=== PATIENT | male | born 1965 | race Caucasian/White ===

== ENCOUNTER → 2016-07-25 | Outpatient (CLI) | payer BC ==
--- NOTE | 2016-07-25 07:54 | MR ---
EXAMINATION TYPE: MR brain wo/w con DATE OF EXAM: 07/25/2016 6:54 AM COMPARISON: NONE HISTORY: Transient global amnesia CONTRAST: Patient received 20 mL intravenous MultiHance gadolinium contrast. Multiplanar and multispin-echo imaging of the brain was performed . Pre and post contrast enhanced i mages are obtained. The ventricles, basal cisterns and sulci overlying the cerebral convexities are minimally enlarged. There is evidence of mild periventricular white matter ischemic demyelination. Remote deep white matter insults are also noted. No acute edema is seen on diffusion weighted imaging. There is no evidence for midline shift or mass effect. Acute intracranial hemorrhage or extra-axial collection is not evident. No enhancing lesions are seen. Incidental small venous angioma left cerebellar lobe. Mild chronic ethmoidal sinusitis. Mastoid air cells are well-aerated. IMPRESSION: Age-related atrophic and chronic small vessel ischemic change. No acute intracranial process at this time. No enhancing lesions are seen.
== END | disposition home or self-care (01) ==
LOC: RADMRIMAIN 06:09
PROVIDERS: ATTEND Nurse Practitioner Family
DX: G45.4 Transient global amnesia (principal); Z87.820 Personal history of traumatic brain injury
CPT/HCPCS: 70553; A9577

== ENCOUNTER 2017-07-04 08:22 | Day surgery (SDC) | payer BC ==
[2017-07-02 11:27] VITALS: BMI 25.0
[~2017-07-04 08:22] MED LIST: LACTATED RINGERS 1,000 ML IV SCH; LIDOCAINE 1% 20 ML VIAL (10MG/ML) FOR IV START INTRADERMA PRN
[2017-07-04 08:37] VITALS: TEMP 98.5
[2017-07-04] MEDS ORDERED: PROPOFOL 10 MG/ML 20 ML VIAL IV ONE (09:47)
[2017-07-04] MEDS ORDERED: LIDOCAINE 1% INJ 10MG/ML (20 ML MDV) ONE (09:47)
[2017-07-04] MEDS ORDERED: IV FLUID CONTINUATION 1,000 ML IV ONE (10:24)
--- NOTE | 2017-07-04 10:30 | P.PCN ---
Date of Procedure: 07/04/17 Procedure(s) Performed: Procedure: Colonoscopy and polypectomy. Preoperative diagnosis: Screening for neoplasia. Postoperative diagnosis: 1. Multiple polyps snared but no large polyps or cancer. 2. Sigmoid diverticulosis with no evidence of acute diverticulitis or strictures. 3. Low-grade internal hemorrhoids not bleeding at the time of this exam. Preparation: HalfLytely prep. Sedation: Was provided by anesthesia. Brief clinical history: The patient is a 52-year-old male who is scheduled for this evaluation for screening for neoplasia age being his risk factor. He apparently has been having intermittent rectal bleeding. I have seen him in the past and evaluated him for esophagitis and Jiménez's esophagus. Procedure: With the patient on his left lateral decubitus position and after informed consent and adequate sedation, the perianal area was inspected and it did not show any fissures or fistulas. There were no masses felt on digital rectal examination. The Olympus CFQ 160L video colonoscope was then inserted in the rectum in the usual fashion and advanced to the cecum. There were several diverticular orifices seen scattered in the distal sigmoid but there was no evidence of acute diverticulitis or strictures. At 30 cm from the anal verge there was a 1.5 cm polyp with a long pedicle which was snared and retrieved by capturing it with the snare and withdrawing the endoscope. There were 2 small polyps around the splenic flexure that were snared and retrieved by suction but there were no large polyps or cancer. The mucosa appeared healthy. I retroflexed the endoscope in the rectum before the endoscope was withdrawn. Low-grade internal hemorrhoids were noted with no evidence of bleeding at the time of this exam. The patient tolerated the procedure well. Plan: The patient was reassured. Discussed dietary measures and local care for hemorrhoids. Will await pathology results. He will follow up with you as planned. I anticipate repeating this exam in around 3 years.
[2017-07-04 10:52] VITALS: BP 123/75; PULSE 55; RESP 18
== END 2017-07-04 11:21 | disposition home or self-care (01) ==
LOC: ORWHC2ENDO 08:22
DX: D12.3 Benign neoplasm of transverse colon (principal); D12.5 Benign neoplasm of sigmoid colon; K57.30 Diverticulosis of large intestine without perforation or abscess without bleeding; K64.8 Other hemorrhoids; K21.9 Gastro-esophageal reflux disease without esophagitis; F17.200 Nicotine dependence, unspecified, uncomplicated; F41.9 Anxiety disorder, unspecified; F32.9 Major depressive disorder, single episode, unspecified
CPT/HCPCS: 45385; 88305

== ENCOUNTER → 2017-11-23 | Outpatient (CLI) | payer BC ==
--- NOTE | 2017-11-24 22:04 | MR ---
EXAMINATION TYPE: MR brain and iac wo/w con DATE OF EXAM: 11/23/2017 COMPARISON: Prior MRI brain July 25, 2016. HISTORY: Tinnitus and asymmetric left-sided sensorineural hearing loss per order. TECHNIQUE: Multiplanar, multisequence images of the brain and brainstem including internal auditory canals are a ll performed without and with IV contrast, utilizing 8.0 mL intravenous Gadavist . FINDINGS: Diffusion weighted images demonstrate no evidence of a recent infarct or other diffusion ab normality. There is no worrisome extra-axial fluid collection. There is stable mild ventricular and sulcal prominence consistent with mild age-related cerebral atrophy. There are scattered foci T2 hype rintensity seen throughout the superficial, deep, and periventricular white matter. Approximately 20- 30 scattered small lesions are redemonstrated. Lesions are nonspecific in appearance and distribution but are most likely on the basis of product of chronic small vessel ischemic change. Midline structures demonstrate normal morphology. The craniocervical junction appears within normal limits. Post contrast images demonstrate no abnormal enhancement. Dominant tortuous right vertebral artery is redemonstrated. The dural venous sinuses appear patent. There is persistent mild mucosal th ickening right maxillary sinus. There is now more moderate mucosal thickening left maxillary sinus wi th air-fluid level. There is mild to moderate mucosal thickening anterior ethmoid sinuses bilaterally more prominent than prior. The globes are intact bilaterally. Mastoid air cells show no suspicious opacification bilaterally. The vestibulocochlear complexes are s ymmetric and felt within normal limits. No suspicious enhancing cerebellopontine angle mass is identi fied bilaterally. IMPRESSION: 1. No suspicious mass or enhancement to account for patient's symptoms. 2. Stable mild age-related atrophy and mild to moderate chronic small vessel ischemic change. 3. Acute on chronic paranasal sinus disease as detailed above more prominent versus prior.
== END ==
LOC: RADMRIMAIN 09:24
PROVIDERS: ATTEND Otolaryngology
DX: G31.1 Senile degeneration of brain, not elsewhere classified (principal); I67.82 Cerebral ischemia
CPT/HCPCS: 70553; A9581

== ENCOUNTER 2018-11-06 09:22 | Day surgery (SDC) | payer BC ==
[2018-11-04 11:52] VITALS: BMI 23.4
[2018-11-06 09:45] VITALS: RESP 16; TEMP 98
[2018-11-06] MEDS ORDERED: PROPOFOL 10 MG/ML 20 ML VIAL IV ONE (11:19)
--- NOTE | 2018-11-06 11:23 | P.GSHP ---
History of Present Illness H&P Date: 11/06/18 Chief Complaint: Internal and external hemorrhoids This a 53-year-old male has complaints of abdominal discomfort, rectal bleeding and itching and pain from internal and external hemorrhoids. Patient rents today for colonoscopy. Past Medical History Past Medical History: GERD/Reflux Additional Past Medical History / Comment(s): anemia, "chronic kidney disease when taking certain medications" History of Any Multi-Drug Resistant Organisms: None Reported Past Surgical History: Hernia Repair, Orthopedic Surgery Additional Past Surgical History / Comment(s): ACL rt knee, rt foot surgery from injury, umbilical hernia, Past Anesthesia/Blood Transfusion Reactions: No Reported Reaction Smoking Status: Current some day smoker - Past Family History Mother Family Medical History: No Reported History Father Family Medical History: Cancer Sister(s) Family Medical History: Cancer Brother(s) Family Medical History: Cancer Medications and Allergies Home Medications Medication Instructions Recorded Confirmed Type Omeprazole 20 mg PO 1700 07/02/17 11/06/18 History ALPRAZolam [Xanax] 0.5 mg PO DAILY PRN 11/04/18 11/06/18 History Allergies Allergy/AdvReac Type Severity Reaction Status Date / Time No Known Allergies Allergy Verified 11/06/18 09:38 Surgical - Exam Vital Signs Temp Pulse Resp BP Pulse Ox 98.0 F 72 16 127/86 97 11/06/18 09:41 11/06/18 09:41 11/06/18 09:41 11/06/18 09:41 11/06/18 09:41 - General well developed, well nourished, no distress - Eyes PERRL - ENT normal pinna - Neck no masses - Respiratory normal expansion - Cardiovascular Rhythm: regular - Abdomen Abdomen: soft, non tender Assessment and Plan Assessment: History of internal/external hemorrhoids Abdominal discomfort Anal pain and bleeding and itching. We'll perform colonoscopy..
--- NOTE | 2018-11-06 11:34 | P.OP ---
Date of Procedure: 11/06/18 Preoperative Diagnosis: Internal and external hemorrhoids Postoperative Diagnosis: Diverticulosis Internal and external hemorrhoids. Transverse colon polyp Procedure(s) Performed: Colonoscopy Anesthesia: MAC Surgeon: Zeyad Perez Pathology: other (Transverse colon polyp) Condition: stable Disposition: PACU Description of Procedure: The patient's placed on the endoscopy table in the lateral position. He received IV sedation. Digital rectal exam was performed which revealed internal and external hemorrhoids. The flexible colonoscope was then placed patient anus and passed throughout the entire colon. The ileocecal valve was visualized. Cecum, ascending colon appeared normal. In the transverse colon there was a small sessile polyp this removed with the cold forcep. Scope was then withdrawn and there was diverticular changes in the descending and sigmoid colon. Scope was then brought back the rectum and internal and external hemorrhoids were noted at the anus. The rectum was normal. Scope was withdrawn for patient.
[2018-11-06 11:53] VITALS: BP 109/76; PULSE 60
== END 2018-11-06 12:37 | disposition home or self-care (01) ==
LOC: ORWHC2ENDO 09:22
PROVIDERS: ATTEND Surgery
DX: K64.8 Other hemorrhoids (principal); K64.4 Residual hemorrhoidal skin tags; K63.5 Polyp of colon; K57.30 Diverticulosis of large intestine without perforation or abscess without bleeding; K21.9 Gastro-esophageal reflux disease without esophagitis; F17.200 Nicotine dependence, unspecified, uncomplicated; Z79.899 Other long term (current) drug therapy; Z80.9 Family history of malignant neoplasm, unspecified
CPT/HCPCS: 88305; 45380; J2704

== ENCOUNTER 2018-11-28 06:16 | Day surgery (SDC) | payer BC ==
[2018-11-26 10:49] VITALS: BMI 23.1
[~2018-11-28 06:16] MED LIST changes: +DEXAMETHASONE SOD PHOSPHATE 10 MG/ML 1 ML VIAL IV ONE; +HEPARIN SODIUM,PORCINE 5,000 UNIT/ML 1 ML VIAL SQ ONE; +HYDROmorphone 0.5 MG/0.5 ML SYRINGE IVP PRN; -LIDOCAINE 1% 20 ML VIAL (10MG/ML) FOR IV START INTRADERMA PRN; +MIDAZOLAM 2 MG/2 ML VIAL IV PRN; +ONDANSETRON 4 MG/2 ML VIAL IVP ONE; +Pre Op ABX Message 1 EACH MISC MISCELLANE ONE; +SCOPOLAMINE 1.5MG/72HR PATCH TRANSDERM ONE
[2018-11-28 06:43] VITALS: RESP 16
[2018-11-28] MEDS ORDERED: NA PHOS,M-B/NA PHOS,DI-BA 133 ML ENEMA RECTAL ONE (06:50)
[2018-11-28] MEDS ORDERED: LIDOCAINE 1% 20 ML VIAL (10MG/ML) FOR IV START INTRADERMA ONE (06:50)
[2018-11-28] MEDS ORDERED: BUPIVACAINE (PF) 0.5% 30 ML VIAL SQ ONE (07:22)
[2018-11-28] MEDS ORDERED: LIDOCAINE 1% INJ 10MG/ML (20 ML MDV) ONE (07:52)
[2018-11-28] MEDS ORDERED: SUCCINYLCHOLINE CHLORIDE 100 MG/5 ML SYR IV ONE (07:52)
[2018-11-28] MEDS ORDERED: PROPOFOL 10 MG/ML 20 ML VIAL IV ONE (07:52)
[2018-11-28] MEDS ORDERED: fentaNYL (PF) 50 MCG/ML 2 ML AMP ONE (07:52)
[2018-11-28] MEDS ORDERED: MIDAZOLAM 2 MG/2 ML VIAL ONE (07:52)
[2018-11-28] MEDS ORDERED: GLYCOPYRROLATE 0.2 MG/ML 2 ML VIAL ONE (07:52)
[2018-11-28] MEDS ORDERED: LACTATED RINGERS 1,000 ML IV ONE (08:37)
--- NOTE | 2018-11-28 08:44 | P.GSHP ---
History of Present Illness H&P Date: 11/28/18 Chief Complaint: Internal and external hemorrhoids This is a 53-year-old male who's had trouble with internal and external hemorrhoids. Patient points of rectal bleeding pain and itching. He presents today for hemorrhoidectomy. Past Medical History Past Medical History: GERD/Reflux Additional Past Medical History / Comment(s): hemorrhoids,anemia, "chronic kidney disease when taking certain medications" History of Any Multi-Drug Resistant Organisms: None Reported Past Surgical History: Hernia Repair, Orthopedic Surgery Additional Past Surgical History / Comment(s): ACL rt knee, rt foot surgery from injury, umbilical hernia, early on set alzheimers Past Anesthesia/Blood Transfusion Reactions: No Reported Reaction Smoking Status: Current some day smoker - Past Family History Mother Family Medical History: No Reported History Father Family Medical History: Cancer Sister(s) Family Medical History: Cancer Brother(s) Family Medical History: Cancer Medications and Allergies Home Medications Medication Instructions Recorded Confirmed Type Omeprazole 20 mg PO 1700 07/02/17 11/28/18 History ALPRAZolam [Xanax] 0.5 mg PO DAILY PRN 11/04/18 11/28/18 History Allergies Allergy/AdvReac Type Severity Reaction Status Date / Time No Known Allergies Allergy Verified 11/28/18 06:30 Surgical - Exam Vital Signs Temp Pulse Resp BP Pulse Ox 97.6 F 58 L 16 125/83 97 11/28/18 06:41 11/28/18 06:41 11/28/18 06:41 11/28/18 06:41 11/28/18 06:41 - General well developed, well nourished, no distress - Eyes PERRL - ENT normal pinna - Neck no masses - Respiratory normal expansion - Cardiovascular Rhythm: regular - Abdomen Abdomen: soft, non tender - Rectum Internal/external hemorrhoids Assessment and Plan Assessment: Internal and external hemorrhoids. We'll perform hemorrhoidectomy.
[2018-11-28 08:46] VITALS: TEMP 97.5
--- NOTE | 2018-11-28 08:46 | P.OP ---
Date of Procedure: 11/28/18 Preoperative Diagnosis: Internal and external hemorrhoids Postoperative Diagnosis: Internal and external hemorrhoids Procedure(s) Performed: Internal and external hemorrhoidectomy Anesthesia: RAJAN Surgeon: Zeyad Perez Estimated Blood Loss (ml): 5 Pathology: other (Internal and external hemorrhoids) Condition: stable Disposition: PACU Description of Procedure: The patient's placed on the endoscopy table on the operating table in the prone position after receiving general anesthesia. His anus was prepped and draped usual fashion. The patient had significant internal and external hemorrhoids. The anal retractors placed and anus. The left lateral column was grasped with a Allis clamp and then using the Harmonic scissors the rectus performed. Next the right anterior and right posterior column were removed in identical fashion. There is no bleeding seen. The anus was packed with a piece of Gelfoam. The anus was anesthetized 1% local Xylocaine. Patient top she will was sent to recovery room stable condition.
[2018-11-28 10:21] VITALS: BP 123/76; PULSE 75
== END 2018-11-28 10:33 | disposition home or self-care (01) ==
LOC: OR 06:16
PROVIDERS: ATTEND Surgery
DX: K64.8 Other hemorrhoids (principal); K64.4 Residual hemorrhoidal skin tags; K21.9 Gastro-esophageal reflux disease without esophagitis; D64.9 Anemia, unspecified; F41.9 Anxiety disorder, unspecified; G30.0 Alzheimer's disease with early onset; F02.80 Dementia in other diseases classified elsewhere, unspecified severity, without behavioral disturbance, psychotic disturbance, mood disturbance, and anxiety; F17.200 Nicotine dependence, unspecified, uncomplicated; Z79.899 Other long term (current) drug therapy; Z80.9 Family history of malignant neoplasm, unspecified
CPT/HCPCS: 46260; 88304; J2250; J1644; J1100; J2405; J2001; J3010; J0330; J2704

== ENCOUNTER 2018-12-03 13:39 | Emergency (ER) | payer BC ==
[2018-12-03 13:54] VITALS: RESP 16; TEMP 98.4
[2018-12-03] MEDS ORDERED: KETOROLAC 60 MG/2 ML VIAL IVP STA (14:09)
[2018-12-03] MEDS ORDERED: DIAZEPAM 5 MG/ML 2 ML INJ IVP STA (14:09)
--- NOTE | 2018-12-03 14:14 | ED ---
General Adult HPI - General Chief complaint: Abdominal Pain Stated complaint: Constipation Time Seen by Provider: 12/03/18 13:50 Source: patient, RN notes reviewed Mode of arrival: ambulatory Limitations: no limitations - History of Present Illness Initial comments: This is a 53-year-old male who presents to the emergency department complaining of stating he just had hemorrhoid surgery 5 days ago. Patient states going to the bathroom and trying to have a bowel movement makes him literally cry. Patient states he has been constipated because it hurt so bad to go he can't go. Patient states also he has been noting that he is having a difficult time urinating so we just went a little prior to my coming into the room. Patient states she's got some lower abdominal discomfort and fullness. Patient states he believes is because he is constipated. Patient denies any nausea vomiting. Patient states he has not been taking stool softeners for some reason he didn't know he had them. - Related Data Home Medications Medication Instructions Recorded Confirmed Omeprazole 20 mg PO DAILY 07/02/17 12/03/18 Acetaminophen-Codeine 300-30mg 2 tab PO Q6H PRN 12/03/18 12/03/18 [Tylenol w/codeine #3] Citalopram Hydrobromide 20 mg PO DAILY 12/03/18 12/03/18 [Citalopram HBr] Previous Rx's Medication Instructions Recorded Docusate [Colace] 100 mg PO BID #20 capsule 11/28/18 Diazepam [Valium] 5 mg PO Q6H #10 tab 12/03/18 Allergies Allergy/AdvReac Type Severity Reaction Status Date / Time No Known Allergies Allergy Verified 12/03/18 14:00 Review of Systems ROS Statement: Those systems with pertinent positive or pertinent negative responses have been documented in the HPI. ROS Other: All systems not noted in ROS Statement are negative. Past Medical History Past Medical History: GERD/Reflux Additional Past Medical History / Comment(s): hemorrhoids,anemia, "chronic kidney disease when taking certain medications" History of Any Multi-Drug Resistant Organisms: None Reported Past Surgical History: Hernia Repair, Orthopedic Surgery Additional Past Surgical History / Comment(s): ACL rt knee, rt foot surgery from injury, umbilical hernia, early on set alzheimers Past Anesthesia/Blood Transfusion Reactions: No Reported Reaction Past Psychological History: Anxiety Smoking Status: Current some day smoker Past Alcohol Use History: None Reported Past Drug Use History: None Reported - Past Family History Mother Family Medical History: No Reported History Father Family Medical History: Cancer Sister(s) Family Medical History: Cancer Brother(s) Family Medical History: Cancer General Exam - General Exam Comments Initial Comments: GENERAL: Patient is well-developed and well-nourished. Patient is nontoxic and well- hydrated and is in moderate distress. ENT: Neck is soft and supple. No significant lymphadenopathy is noted. Oropharynx is clear. Moist mucous membranes. Neck has full range of motion without eliciting any pain. EYES: The sclera were anicteric and conjunctiva were pink and moist. Extraocular movements were intact and pupils were equal round and reactive to light. Eyelids were unremarkable. PULMONARY: Unlabored respirations. Good breath sounds bilaterally. No audible rales rhonchi or wheezing was noted. CARDIOVASCULAR: There is a regular rate and rhythm without any murmurs gallops or rubs. ABDOMEN: Abdomen is slightly tender in the suprapubic region and distended. RECTAL: There were no obvious hemorrhoids there was no active bleeding I did not do a digital exam secondary to the patient's pain. SKIN: Skin is clear with no lesions or rashes and otherwise unremarkable. NEUROLOGIC: Patient is alert and oriented x3. Cranial nerves II through XII are grossly intact. Motor and sensory are also intact. Normal speech, volume and content. Symmetrical smile. MUSCULOSKELETAL: Normal extremities with adequate strength and full range of motion. No lower extremity swelling or edema. No calf tenderness. LYMPHATICS: No significant lymphadenopathy is noted PSYCHIATRIC: Normal psychiatric evaluation. Limitations: no limitations Course Vital Signs 12/03/18 13:51 Temperature 98.4 F Pulse Rate 70 Respiratory 16 Rate Blood Pressure 133/83 O2 Sat by Pulse 99 Oximetry Medical Decision Making - Medical Decision Making Patient's bladder scan showed 900 mL and she was straight cathetered that time. Patient's x-ray shows some stool in the rectum. - Lab Data Result diagrams: 12/03/18 14:20 12/03/18 14:20 Lab Results 12/03/18 12/03/18 Range/Units 14:20 14:20 WBC 7.6 (3.8-10.6) k/uL RBC 3.80 L (4.30-5.90) m/uL Hgb 11.4 L (13.0-17.5) gm/dL Hct 33.8 L (39.0-53.0) % MCV 88.9 (80.0-100.0) fL MCH 29.9 (25.0-35.0) pg MCHC 33.7 (31.0-37.0) g/dL RDW 14.3 (11.5-15.5) % Plt Count 276 (150-450) k/uL Neutrophils % 76 % Lymphocytes % 10 % Monocytes % 10 % Eosinophils % 3 % Basophils % 0 % Neutrophils # 5.7 (1.3-7.7) k/uL Lymphocytes # 0.8 L (1.0-4.8) k/uL Monocytes # 0.7 (0-1.0) k/uL Eosinophils # 0.2 (0-0.7) k/uL Basophils # 0.0 (0-0.2) k/uL Sodium 137 (137-145) mmol/L Potassium 4.0 (3.5-5.1) mmol/L Chloride 102 (98-107) mmol/L Carbon Dioxide 25 (22-30) mmol/L Anion Gap 10 mmol/L BUN 12 (9-20) mg/dL Creatinine 1.25 (0.66-1.25) mg/dL Est GFR (CKD-EPI)AfAm 76 (>60 ml/min/1.73 sqM) Est GFR (CKD-EPI)NonAf 66 (>60 ml/min/1.73 sqM) Glucose 96 (74-99) mg/dL Calcium 9.0 (8.4-10.2) mg/dL Total Bilirubin 0.4 (0.2-1.3) mg/dL AST 54 (17-59) U/L ALT 35 (21-72) U/L Alkaline Phosphatase 139 H (38-126) U/L Total Protein 6.5 (6.3-8.2) g/dL Albumin 3.8 (3.5-5.0) g/dL Disposition Clinical Impression: Status post hemorrhoidectomy Disposition: HOME SELF-CARE Condition: Good Instructions (If sedation given, give patient instructions): Hemorrhoidectomy (DC) Prescriptions: Diazepam [Valium] 5 mg PO Q6H #10 tab Is patient prescribed a controlled substance at d/c from ED?: Yes When asked, does pt state using other controlled substances?: Yes If prescribed controlled substance>3 days was MAPS reviewed?: Prescribed <3 Days If opioid is for acute pain is fill amount 7 days or less?: No If Rx opioid, was Start Talking consent form obtained?: No Referrals: Marely Johnson DO [Primary Care Provider] - 1-2 days Time of Disposition: 15:11
[2018-12-03 14:31] LABS: Basophils % (A) 0 %; Eosinophils # (A) 0.2 k/uL (0-0.7); Eosinophils % (A) 3 %; HCT 33.8 % (39.0-53.0); HGB 11.4 gm/dL (13.0-17.5); Lymphocytes # (A) 0.8 k/uL (1.0-4.8); Lymphocytes % (A) 10 %; MCH 29.9 pg (25.0-35.0); MCHC 33.7 g/dL (31.0-37.0); MCV 88.9 fL (80.0-100.0); Mean Platelet Volume 7.2; Monocytes # (A) 0.7 k/uL (0-1.0); Monocytes % (A) 10 %; Neutrophils # (A) 5.7 k/uL (1.3-7.7); Neutrophils % (A) 76 %; Platelet Count 276 k/uL (150-450); RDW 14.3 % (11.5-15.5); WBC 7.6 k/uL (3.8-10.6)
[2018-12-03 14:44] LABS: Albumin 3.8 g/dL (3.5-5.0); Total Bilirubin 0.4 mg/dL (0.2-1.3); Total Protein 6.5 g/dL (6.3-8.2)
--- NOTE | 2018-12-03 15:27 | XR ---
EXAMINATION TYPE: XR KUB DATE OF EXAM: 12/03/2018 COMPARISON: NONE HISTORY: Pain TECHNIQUE: Single supine KUB image of the abdomen is obtained FINDINGS: Small bowel demonstrates no evidence for dilatation or air fluid levels. Gas and fecal material is seen in non-distended colon. No convincing evidence for pneumoperitoneum. No unusual calcifications. The lung bases are clear. The osseous structures are intact. IMPRESSION: 1. Overall nonobstructive bowel gas pattern.
[2018-12-03 15:39] VITALS: BP 121/85; PULSE 61
== END 2018-12-03 15:45 | disposition home or self-care (01) ==
LOC: EC 13:39
DX: K59.00 Constipation, unspecified (principal); R10.30 Lower abdominal pain, unspecified; R39.198 Other difficulties with micturition; K21.9 Gastro-esophageal reflux disease without esophagitis; F17.200 Nicotine dependence, unspecified, uncomplicated; N18.9 Chronic kidney disease, unspecified; Z79.899 Other long term (current) drug therapy; Z98.890 Other specified postprocedural states
CPT/HCPCS: 99284; 51701; 96374; 96375; 36415; 80053; 85025; 74018; J3360; J1885

== ENCOUNTER 2018-12-04 10:33 | Inpatient (IN) | payer BC ==
[2018-12-04] MEDS ORDERED: SODIUM CHLORIDE 0.9% 1,000 ML IV STA ×3 (10:46→15:48)
--- NOTE | 2018-12-04 11:25 | ED ---
GI Bleed HPI <Matty Velázquez - Last Filed: 12/04/18 15:29> - General Source: family Mode of arrival: ambulatory Limitations: no limitations <Merly Houston - Last Filed: 12/04/18 16:14> - General Chief complaint: GI Bleed Stated complaint: Post op, rectal bleeding Time Seen by Provider: 12/04/18 10:45 - History of Present Illness Initial comments: 53-year-old male presenting today for chief complaint rectal bleeding. Patient had an operation on November [address] Perez, Hemorrhoidectomy. Patient states that he had pain following the surgery but no bleeding. Patient states that yesterday presented for urinary retention he states he has been constipated. Patient states that he had a catheter placed yesterday it was removed. He states he has been able to spontaneous he urinate. Patient at this point felt like he had a little bit of urinary retention. He also noted a large amount of rectal bleeding. As well as increased pain. Patient was concerned about the amount of bleeding and presents emergency department for evaluation. Patient denies vomiting or diarrhea. Patient states he has felt lightheaded and weak. Patient states this has been ongoing since the surgery. Patient denies any fevers night sweats or flulike symptoms. Remaining review of systems negative upon arrival patient appears well but appears uncomfortable. (Merly Houston) - Related Data Home Medications Medication Instructions Recorded Confirmed Omeprazole 20 mg PO DAILY 07/02/17 12/04/18 Acetaminophen Tab [Tylenol] 325 mg PO Q8HR PRN 12/04/18 12/04/18 Previous Rx's Medication Instructions Recorded Docusate [Colace] 100 mg PO BID #20 capsule 11/28/18 Diazepam [Valium] 5 mg PO Q6H #10 tab 12/03/18 Allergies Allergy/AdvReac Type Severity Reaction Status Date / Time No Known Allergies Allergy Verified 12/04/18 10:45 Review of Systems ROS Other: All systems not noted in ROS Statement are negative. <Matty Velázquez - Last Filed: 12/04/18 15:29> ROS Other: All systems not noted in ROS Statement are negative. <Merly Houston - Last Filed: 12/04/18 16:14> ROS Statement: Those systems with pertinent positive or pertinent negative responses have been documented in the HPI. Past Medical History Past Medical History: GERD/Reflux Additional Past Medical History / Comment(s): hemorrhoids,anemia, "chronic kidney disease when taking certain medications" History of Any Multi-Drug Resistant Organisms: None Reported Past Surgical History: Hernia Repair, Orthopedic Surgery Additional Past Surgical History / Comment(s): ACL rt knee, rt foot surgery from injury, umbilical hernia, early on set alzheimers, hemorroidectomy Past Anesthesia/Blood Transfusion Reactions: No Reported Reaction Past Psychological History: Anxiety Smoking Status: Current some day smoker Past Alcohol Use History: None Reported Past Drug Use History: None Reported - Past Family History Mother Family Medical History: No Reported History Father Family Medical History: Cancer Sister(s) Family Medical History: Cancer Brother(s) Family Medical History: Cancer <Merly Houston L - Last Filed: 12/04/18 16:14> General Exam Limitations: no limitations <Merly Houston - Last Filed: 12/04/18 16:14> - General Exam Comments Initial Comments: General: The patient is awake and alert, in no distress Eye: +3 mm pupils are equal, round and reactive to light, extra-ocular movements are intact. No nystagmus. There is normal conjunctiva bilaterally. No signs of icterus. Ears, nose, mouth and throat: There are moist mucous membranes and no oral lesions. Neck: The neck is supple, there is no tenderness or JVD. Cardiovascular: There is a regular rate and rhythm. No murmur, rub or gallop is appreciated. Respiratory: Lungs are clear to auscultation, respirations are non-labored, breath sounds are equal. No wheezes, stridor, rales, or rhonchi. Gastrointestinal: Soft, non-distended, non-tender abdomen without masses or organomegaly noted. There is no rebound or guarding present. No CVA tenderness. Bowel sounds are unremarkable. Rectal exam, bright red blood with clots from anus. Musculoskeletal: Normal ROM, no tenderness. Strength 5/5. Sensation intact. Radial and DP pulses equal bilaterally 2+. Neurological: A&O x 3. CN II-XII intact, There are no obvious motor or sensory deficits. Coordination appears grossly intact. Speech is normal. Skin: Skin is warm and dry and no rashes or lesions are noted. Psychiatric: Cooperative, appropriate mood & affect, normal judgment. (Merly Houston) Course <Merly Houston - Last Filed: 12/04/18 16:14> Vital Signs 12/04/18 12/04/18 12/04/18 10:42 12:38 13:40 Temperature 97.9 F Pulse Rate 73 74 Respiratory 18 16 18 Rate Blood Pressure 98/67 102/72 91/66 O2 Sat by Pulse 98 98 100 Oximetry 12/04/18 12/04/18 12/04/18 14:13 14:49 15:38 Temperature 100.2 F H 98.3 F Pulse Rate 80 86 103 H Respiratory 16 18 20 Rate Blood Pressure 94/70 85/65 72/46 O2 Sat by Pulse 97 96 99 Oximetry 12/04/18 12/04/18 12/04/18 15:41 15:51 16:01 Temperature 98.2 F 98.3 F Pulse Rate 104 H 84 66 Respiratory 20 20 20 Rate Blood Pressure 59/47 84/64 96/66 O2 Sat by Pulse 100 100 100 Oximetry - Reevaluation(s) Reevaluation #1: Patient bleeding rectally, attempted to call Dr Perez. Doctor in OR, spoke with OR staff--stated to call back after [facility] (Merly Houston) Reevaluation #2: BP continues to bleed, HgB unchanged from previous, however patient has acute bleeding. Contacted Dr. Perez--who recommended discharge; however we will monitor patient-- I feel the bleeding is too heavy for discharge, verbal order--second line (Merly Houston) Reevaluation #3: Repeat HgB decrease, Dr. Velázquez contacted Ana, recommended admission, concern ICU admission given patient BP lower aspect of normal. (Merly Houston) Reevaluation #4: Blood pressure decrease with standing, patient refusing to follow best rest orders, continue to get up, blood pressure decreases, heart rate increased-- orthostatic. Patient given increased fluids, will transfuse-symptomatic with active bleeding. (Merly Houston) Reevaluation #5: Contacted Dr. Perez, he will bring OR staff in. Patient to go to surgery, HR BP improve when sitting/lying. 12/04/18 16:10 (Merly Houston) Medical Decision Making - Lab Data Result diagrams: 12/04/18 13:51 12/04/18 11:15 <Matty Velázquez - Last Filed: 12/04/18 15:29> - Lab Data Result diagrams: 12/04/18 13:51 12/04/18 11:15 <Merly Houston - Last Filed: 12/04/18 16:14> - Medical Decision Making I, Derrick Velázquez, personally saw and examined the patient. I have reviewed and agree with the PA findings, including all diagnostic interpretations and treatment plans as written unless otherwise stated. I was present for the simmons portions of any procedures performed and the inclusive time noted for any critical care statement. I spoke with Dr. Perez the first time and he suggested the patient go home however the patient had multiple large bloody bowel movements since then and I called Dr. mcmullen back and he agreed to admit the patient. (Matty Velázquez) Patient presenting for post operative bleeding. Multiple bright red blood stools. Patient symptomatic. Transfused. IV fluids. Improvement of VS. Dr. Perez to take patient to OR. (Merly Houston) - Lab Data Lab Results 12/04/18 12/04/18 12/04/18 Range/Units 11:15 11:15 11:15 WBC 6.8 (3.8-10.6) k/uL RBC 3.93 L (4.30-5.90) m/uL Hgb 11.3 L (13.0-17.5) gm/dL Hct 35.2 L (39.0-53.0) % MCV 89.7 (80.0-100.0) fL MCH 28.8 (25.0-35.0) pg MCHC 32.1 (31.0-37.0) g/dL RDW 13.9 (11.5-15.5) % Plt Count 295 (150-450) k/uL Neutrophils % 76 % Lymphocytes % 11 % Monocytes % 8 % Eosinophils % 3 % Basophils % 0 % Neutrophils # 5.2 (1.3-7.7) k/uL Lymphocytes # 0.8 L (1.0-4.8) k/uL Monocytes # 0.5 (0-1.0) k/uL Eosinophils # 0.2 (0-0.7) k/uL Basophils # 0.0 (0-0.2) k/uL APTT 23.8 (22.0-30.0) sec Sodium 140 (137-145) mmol/L Potassium 4.0 (3.5-5.1) mmol/L Chloride 105 (98-107) mmol/L Carbon Dioxide 24 (22-30) mmol/L Anion Gap 11 mmol/L BUN 11 (9-20) mg/dL Creatinine 1.29 H (0.66-1.25) mg/dL Est GFR (CKD-EPI)AfAm 73 (>60 ml/min/1.73 sqM) Est GFR (CKD-EPI)NonAf 63 (>60 ml/min/1.73 sqM) Glucose 97 (74-99) mg/dL Calcium 9.1 (8.4-10.2) mg/dL Total Bilirubin 0.5 (0.2-1.3) mg/dL AST 39 (17-59) U/L ALT 31 (21-72) U/L Alkaline Phosphatase 141 H (38-126) U/L Troponin I (0.000-0.034) ng/mL Total Protein 6.6 (6.3-8.2) g/dL Albumin 3.8 (3.5-5.0) g/dL Urine Color Urine Appearance (Clear) Urine pH (5.0-8.0) Ur Specific [place] (1.001-1.035) Urine Protein (Negative) Urine Glucose (UA) (Negative) Urine Ketones (Negative) Urine Blood (Negative) Urine Nitrite (Negative) Urine Bilirubin (Negative) Urine Urobilinogen (<2.0) mg/dL Ur Leukocyte Esterase (Negative) Blood Type Blood Type Confirm Blood Type Recheck Antibody Screen Crossmatch Spec Expiration Date 12/04/18 12/04/18 12/04/18 Range/Units 11:15 11:15 11:45 WBC (3.8-10.6) k/uL RBC (4.30-5.90) m/uL Hgb (13.0-17.5) gm/dL Hct (39.0-53.0) % MCV (80.0-100.0) fL MCH (25.0-35.0) pg MCHC (31.0-37.0) g/dL RDW (11.5-15.5) % Plt Count (150-450) k/uL Neutrophils % % Lymphocytes % % Monocytes % % Eosinophils % % Basophils % % Neutrophils # (1.3-7.7) k/uL Lymphocytes # (1.0-4.8) k/uL Monocytes # (0-1.0) k/uL Eosinophils # (0-0.7) k/uL Basophils # (0-0.2) k/uL APTT (22.0-30.0) sec Sodium (137-145) mmol/L Potassium (3.5-5.1) mmol/L Chloride (98-107) mmol/L Carbon Dioxide (22-30) mmol/L Anion Gap mmol/L BUN (9-20) mg/dL Creatinine (0.66-1.25) mg/dL Est GFR (CKD-EPI)AfAm (>60 ml/min/1.73 sqM) Est GFR (CKD-EPI)NonAf (>60 ml/min/1.73 sqM) Glucose (74-99) mg/dL Calcium (8.4-10.2) mg/dL Total Bilirubin (0.2-1.3) mg/dL AST (17-59) U/L ALT (21-72) U/L Alkaline Phosphatase (38-126) U/L Troponin I <0.012 (0.000-0.034) ng/mL Total Protein (6.3-8.2) g/dL Albumin (3.5-5.0) g/dL Urine Color Light Yellow Urine Appearance Clear (Clear) Urine pH 7.0 (5.0-8.0) Ur Specific [place] 1.006 (1.001-1.035) Urine Protein Negative (Negative) Urine Glucose (UA) Negative (Negative) Urine Ketones Negative (Negative) Urine Blood Negative (Negative) Urine Nitrite Negative (Negative) Urine Bilirubin Negative (Negative) Urine Urobilinogen <2.0 (<2.0) mg/dL Ur Leukocyte Esterase Negative (Negative) Blood Type A Positive Blood Type Confirm Blood Type Recheck CABO Indicated Antibody Screen NEGATIVE Crossmatch See Detail Spec Expiration Date 12/07/2018 - 8134 12/04/18 12/04/18 Range/Units 12:30 13:51 WBC 8.6 (3.8-10.6) k/uL RBC 3.45 L (4.30-5.90) m/uL Hgb 10.4 L (13.0-17.5) gm/dL Hct 31.1 L (39.0-53.0) % MCV 89.9 (80.0-100.0) fL MCH 30.1 (25.0-35.0) pg MCHC 33.5 (31.0-37.0) g/dL RDW 14.0 (11.5-15.5) % Plt Count 296 (150-450) k/uL Neutrophils % % Lymphocytes % % Monocytes % % Eosinophils % % Basophils % % Neutrophils # (1.3-7.7) k/uL Lymphocytes # (1.0-4.8) k/uL Monocytes # (0-1.0) k/uL Eosinophils # (0-0.7) k/uL Basophils # (0-0.2) k/uL APTT (22.0-30.0) sec Sodium (137-145) mmol/L Potassium (3.5-5.1) mmol/L Chloride (98-107) mmol/L Carbon Dioxide (22-30) mmol/L Anion Gap mmol/L BUN (9-20) mg/dL Creatinine (0.66-1.25) mg/dL Est GFR (CKD-EPI)AfAm (>60 ml/min/1.73 sqM) Est GFR (CKD-EPI)NonAf (>60 ml/min/1.73 sqM) Glucose (74-99) mg/dL Calcium (8.4-10.2) mg/dL Total Bilirubin (0.2-1.3) mg/dL AST (17-59) U/L ALT (21-72) U/L Alkaline Phosphatase (38-126) U/L Troponin I (0.000-0.034) ng/mL Total Protein (6.3-8.2) g/dL Albumin (3.5-5.0) g/dL Urine Color Urine Appearance (Clear) Urine pH (5.0-8.0) Ur Specific [place] (1.001-1.035) Urine Protein (Negative) Urine Glucose (UA) (Negative) Urine Ketones (Negative) Urine Blood (Negative) Urine Nitrite (Negative) Urine Bilirubin (Negative) Urine Urobilinogen (<2.0) mg/dL Ur Leukocyte Esterase (Negative) Blood Type Blood Type Confirm A Positive Blood Type Recheck Antibody Screen Crossmatch Spec Expiration Date Disposition <Matty Velázquez - Last Filed: 12/04/18 15:29> Is patient prescribed a controlled substance at d/c from ED?: No Time of Disposition: 13:54 Decision to Admit Reason: Admit from EC Decision Date: 12/04/18 Decision Time: 13:54 <Merly Houston - Last Filed: 12/04/18 16:14> Clinical Impression: Post-operative complication, Rectal bleeding Disposition: ADMITTED IP TO THIS HOSP Condition: Serious
[2018-12-04] MEDS ORDERED: LIDOCAINE URO-JET JELLY 2% 5 ML KIT URETHRAL ONE (11:32)
[2018-12-04 11:37] LABS: Basophils % (A) 0 %; Eosinophils # (A) 0.2 k/uL (0-0.7); Eosinophils % (A) 3 %; HCT 35.2 % (39.0-53.0); HGB 11.3 gm/dL (13.0-17.5); Lymphocytes # (A) 0.8 k/uL (1.0-4.8); Lymphocytes % (A) 11 %; MCH 28.8 pg (25.0-35.0); MCHC 32.1 g/dL (31.0-37.0); MCV 89.7 fL (80.0-100.0); Mean Platelet Volume 6.6; Monocytes # (A) 0.5 k/uL (0-1.0); Monocytes % (A) 8 %; Neutrophils # (A) 5.2 k/uL (1.3-7.7); Neutrophils % (A) 76 %; Platelet Count 295 k/uL (150-450); RBC 3.93 m/uL (4.30-5.90); RDW 13.9 % (11.5-15.5); WBC 6.8 k/uL (3.8-10.6)
[2018-12-04 11:44] LABS: Albumin 3.8 g/dL (3.5-5.0); Calcium 9.1 mg/dL (8.4-10.2); Total Bilirubin 0.5 mg/dL (0.2-1.3); Total Protein 6.6 g/dL (6.3-8.2)
[2018-12-04 12:02] LABS: Appearance,Urine Clear (Clear); Bilirubin,Urine Negative (Negative); Blood,Urine Negative (Negative); Color,Urine Light Yellow; Glucose,Urine (UA) Negative (Negative); Ketones,Urine Negative (Negative); Leukocyte Esterase,Urine Negative (Negative); Nitrite,Urine Negative (Negative); Protein,Urine Negative (Negative); Specific Gravity,Urine 1.006 (1.001-1.035); Urobilinogen,Urine <2.0 mg/dL (<2.0)
[2018-12-04] MEDS ORDERED: MORPHINE SULFATE 4 MG/ML SYRINGE IVP STA (12:06)
[2018-12-04] MEDS ORDERED: HYDROmorphone 0.5 MG/0.5 ML SYRINGE IVP STA (12:34)
[2018-12-04] MEDS ORDERED: NALOXONE 0.4 MG/ML 1 ML VIAL IV PRN ×2 (13:51→17:40)
[2018-12-04 13:59] LABS: HCT 31.1 % (39.0-53.0); HGB 10.4 gm/dL (13.0-17.5); MCH 30.1 pg (25.0-35.0); MCHC 33.5 g/dL (31.0-37.0); MCV 89.9 fL (80.0-100.0); Mean Platelet Volume 6.5; Platelet Count 296 k/uL (150-450); RBC 3.45 m/uL (4.30-5.90); WBC 8.6 k/uL (3.8-10.6)
[2018-12-04] MEDS: SODIUM CHLORIDE 0.9% 1,000 ML IV SCH ×2 (14:46→23:58)
[2018-12-04] MEDS ORDERED: HYDROmorphone 0.5 MG/0.5 ML SYRINGE IVP PRN (16:28)
[2018-12-04] MEDS ORDERED: PROPOFOL 10 MG/ML 20 ML VIAL IV ONE (17:02)
[2018-12-04] MEDS ORDERED: LIDOCAINE 1% INJ 10MG/ML (20 ML MDV) ONE (17:02)
[2018-12-04] MEDS ORDERED: NEOSTIGMINE 1 MG/ML 10 ML VIAL ONE (17:02)
[2018-12-04] MEDS ORDERED: DEXAMETHASONE SOD PHOS (MDV) 100 MG/10 ML VIAL ONE (17:02)
[2018-12-04] MEDS ORDERED: ROCURONIUM BROMIDE 10 MG/ML 10 ML VIAL IV ONE (17:02)
[2018-12-04] MEDS ORDERED: GLYCOPYRROLATE 0.2 MG/ML 2 ML VIAL ONE (17:02)
[2018-12-04] MEDS ORDERED: MIDAZOLAM 2 MG/2 ML VIAL ONE (17:02)
[2018-12-04] MEDS ORDERED: fentaNYL (PF) 50 MCG/ML 2 ML AMP ONE (17:02)
[2018-12-04] MEDS ORDERED: ceFAZolin 1,000 MG VIAL IVPB ONE (17:02)
[2018-12-04] MEDS ORDERED: SUCCINYLCHOLINE CHLORIDE 100 MG/5 ML SYR IV ONE (17:02)
[2018-12-04] MEDS ORDERED: ONDANSETRON 4 MG/2 ML VIAL ONE (17:02)
[2018-12-04] MEDS ORDERED: SODIUM CHLORIDE 0.9% 1,000 ML IV ONE (17:02)
--- NOTE | 2018-12-04 17:05 | P.GSHP ---
History of Present Illness H&P Date: 12/04/18 Chief Complaint: Rectal bleeding This a 53-year-old male. Patient had complaints of rectal bleeding this morning. The patient underwent hemorrhoidectomy on 11/28/2018. The patient presented yesterday to the emergency room with urinary retention. This morning the patient states he was straining to go to the bathroom to have a bowel movement. After his bowel movement he developed some rectal pain and then developed bleeding. Patient was seen in the emergency room. At first he thought his bleeding had stopped however he had several bloody bowel movement in the emergency room. The patient will undergo exam under anesthesia for rectal bleeding today. Past Medical History Past Medical History: GERD/Reflux Additional Past Medical History / Comment(s): hemorrhoids,anemia, "chronic kidney disease when taking certain medications" History of Any Multi-Drug Resistant Organisms: None Reported Past Surgical History: Hernia Repair, Orthopedic Surgery Additional Past Surgical History / Comment(s): ACL rt knee, rt foot surgery from injury, umbilical hernia, early on set alzheimers, hemorroidectomy Past Anesthesia/Blood Transfusion Reactions: No Reported Reaction Past Psychological History: Anxiety Smoking Status: Current some day smoker Past Alcohol Use History: None Reported Past Drug Use History: None Reported - Past Family History Mother Family Medical History: No Reported History Father Family Medical History: Cancer Sister(s) Family Medical History: Cancer Brother(s) Family Medical History: Cancer Medications and Allergies Home Medications Medication Instructions Recorded Confirmed Type Omeprazole 20 mg PO DAILY 07/02/17 12/04/18 History Docusate [Colace] 100 mg PO BID #20 capsule 11/28/18 12/04/18 Rx Diazepam [Valium] 5 mg PO Q6H #10 tab 12/03/18 12/04/18 Rx Acetaminophen Tab [Tylenol] 325 mg PO Q8HR PRN 12/04/18 12/04/18 History Allergies Allergy/AdvReac Type Severity Reaction Status Date / Time No Known Allergies Allergy Verified 12/04/18 10:45 Surgical - Exam Vital Signs Temp Pulse Resp BP Pulse Ox 97.9 F 73 18 98/67 98 12/04/18 10:42 12/04/18 10:42 12/04/18 10:42 12/04/18 10:42 12/04/18 10:42 - General well developed, well nourished, no distress - Eyes PERRL - ENT normal pinna - Neck no masses - Respiratory normal expansion - Cardiovascular Rhythm: regular - Abdomen Abdomen: soft, non tender Results - Labs 12/04/18 13:51 12/04/18 11:15 Abnormal Lab Results - Last 24 Hours (Table) 12/04/18 12/04/18 12/04/18 Range/Units 11:15 11:15 11:15 RBC 3.93 L (4.30-5.90) m/uL Hgb 11.3 L (13.0-17.5) gm/dL Hct 35.2 L (39.0-53.0) % Lymphocytes # 0.8 L (1.0-4.8) k/uL Creatinine 1.29 H (0.66-1.25) mg/dL Alkaline Phosphatase 141 H (38-126) U/L Crossmatch See Detail 12/04/18 Range/Units 13:51 RBC 3.45 L (4.30-5.90) m/uL Hgb 10.4 L (13.0-17.5) gm/dL Hct 31.1 L (39.0-53.0) % Lymphocytes # (1.0-4.8) k/uL Creatinine (0.66-1.25) mg/dL Alkaline Phosphatase (38-126) U/L Crossmatch Diabetes panel 12/04/18 Range/Units 11:15 Sodium 140 (137-145) mmol/L Potassium 4.0 (3.5-5.1) mmol/L Chloride 105 (98-107) mmol/L Carbon Dioxide 24 (22-30) mmol/L BUN 11 (9-20) mg/dL Creatinine 1.29 H (0.66-1.25) mg/dL Glucose 97 (74-99) mg/dL Calcium 9.1 (8.4-10.2) mg/dL AST 39 (17-59) U/L ALT 31 (21-72) U/L Alkaline Phosphatase 141 H (38-126) U/L Total Protein 6.6 (6.3-8.2) g/dL Albumin 3.8 (3.5-5.0) g/dL Calcium panel 12/04/18 Range/Units 11:15 Calcium 9.1 (8.4-10.2) mg/dL Albumin 3.8 (3.5-5.0) g/dL Pituitary panel 12/04/18 Range/Units 11:15 Sodium 140 (137-145) mmol/L Potassium 4.0 (3.5-5.1) mmol/L Chloride 105 (98-107) mmol/L Carbon Dioxide 24 (22-30) mmol/L BUN 11 (9-20) mg/dL Creatinine 1.29 H (0.66-1.25) mg/dL Glucose 97 (74-99) mg/dL Calcium 9.1 (8.4-10.2) mg/dL Adrenal panel 12/04/18 Range/Units 11:15 Sodium 140 (137-145) mmol/L Potassium 4.0 (3.5-5.1) mmol/L Chloride 105 (98-107) mmol/L Carbon Dioxide 24 (22-30) mmol/L BUN 11 (9-20) mg/dL Creatinine 1.29 H (0.66-1.25) mg/dL Glucose 97 (74-99) mg/dL Calcium 9.1 (8.4-10.2) mg/dL Total Bilirubin 0.5 (0.2-1.3) mg/dL AST 39 (17-59) U/L ALT 31 (21-72) U/L Alkaline Phosphatase 141 H (38-126) U/L Total Protein 6.6 (6.3-8.2) g/dL Albumin 3.8 (3.5-5.0) g/dL Assessment and Plan Assessment: Rectal bleeding one week postoperative from hemorrhoidectomy. Patient will undergo exam under anesthesia to the source of rectal bleeding.
[2018-12-04] MEDS ORDERED: LACTATED RINGERS 1,000 ML IV ONE ×3 (17:31→18:30)
[2018-12-04] MEDS ORDERED: LIDOCAINE 2%-EPI 1:100,000 20 ML VIAL SUBMUCOSAL ONE (17:36)
[2018-12-04] MEDS ORDERED: GELATIN SPONGE,ABSORB (LARGE) 1 EACH SPONGE TOPICAL ONE (17:37)
[2018-12-04] MEDS ORDERED: HYDROcodone/APAP 5-325MG 1 EACH TAB PO PRN (17:40)
[2018-12-04] MEDS ORDERED: ONDANSETRON 4 MG/2 ML VIAL IVP PRN (17:40)
--- NOTE | 2018-12-04 17:45 | P.OP ---
Date of Procedure: 12/04/18 Preoperative Diagnosis: Rectal bleeding Postoperative Diagnosis: Rectal bleeding secondary to hemorrhoidectomy mucosal edge bleeding Procedure(s) Performed: Exam under anesthesia with suture repair of rectal bleeding Anesthesia: RAJAN Surgeon: Zeyad Perez Estimated Blood Loss (ml): 10 Pathology: none sent Condition: stable Disposition: PACU Description of Procedure: Patient's placed on the operative table in the supine position. He received general anesthesia. He was then placed in the prone position. His anus was prepped and draped usual fashion. The bivalve anal retractors placed in the anus. The anus was examined. There was a small amount of oozing from the muc osal edge of a hemorrhoidectomy site. This was suture ligated with 0 Vicryl suture. There was no other bleeding seen. The anus was examined multiple times no other bleeding was seen. The anus was packed with Gelfoam. One percent local lidocaine was applied to the anus. Patient top she will was sent to recovery room stable condition.
[2018-12-04] MEDS: MEPERIDINE 50 MG/ML SYRINGE IVP ONE ×2 (18:25→18:42)
[2018-12-04] MEDS: HYDROmorphone 0.5 MG/0.5 ML SYRINGE IVP PRN ×2 (19:30→22:16)
[2018-12-04] MEDS: LACTATED RINGERS 1,000 ML IV SCH (19:33)
[2018-12-04] MEDS: KETOROLAC 30 MG/ML 1 ML VIAL IVP SCH ×2 (19:34→23:56)
[2018-12-05] MEDS: KETOROLAC 30 MG/ML 1 ML VIAL IVP SCH ×2 (06:00→13:07)
[2018-12-05] MEDS ORDERED: DOCUSATE 100 MG CAP PO SCH (09:00)
[2018-12-05] MEDS ORDERED: TAMSULOSIN 0.4 MG CAP.ER.24H PO SCH (09:00)
[2018-12-05 09:01] LABS: Albumin 2.4 g/dL (3.5-5.0); Total Bilirubin 0.3 mg/dL (0.2-1.3); Total Protein 4.6 g/dL (6.3-8.2)
[2018-12-05 10:13] LABS: Basophils % (A) 0 %; Eosinophils % (A) 1 %; HCT 22.5 % (39.0-53.0); Lymphocytes % (A) 14 %; MCH 28.8 pg (25.0-35.0); MCV 87.4 fL (80.0-100.0); Mean Platelet Volume 8.8; Monocytes # (A) 0.7 k/uL (0-1.0); Monocytes % (A) 10 %; Neutrophils # (A) 5.3 k/uL (1.3-7.7); Neutrophils % (A) 75 %; Platelet Count 216 k/uL (150-450); RBC 2.58 m/uL (4.30-5.90); RDW 15.5 % (11.5-15.5)
[2018-12-05 10:16] LABS: HGB 7.4 gm/dL (13.0-17.5)
[2018-12-05 12:09] VITALS: PULSE 64; RESP 16; TEMP 98.1
--- NOTE | 2018-12-05 14:01 | P.DS ---
Providers Date of admission: 12/04/18 15:59 Expected date of discharge: 12/05/18 Attending physician: Zeyad Perez Consults: 12/04/18 17:40 Consult Physician Routine Consulting Provider: Faustino Banerjee Consult Reason/Comments: Medical management Do you want consulting provider notified?: Yes 12/05/18 08:45 Consult Physician Routine Consulting Provider: Derrick Mcclelland Consult Reason/Comments: urinary retention Do you want consulting provider notified?: Yes Primary care physician: Marely Jonhson Hospital Course: 53-year-old male who recently underwent hemorrhoidectomy with Dr. Perez. Patient presented back to the emergency room with urinary retention. The emergency room the patient had an episode of bright red bleeding from rectum. Patient was taken to the operating room for exam under anesthesia with suture repair of rectal bleeding. No further rectal bleeding has been noted. Yan catheter was inserted for urinary retention. This has been discontinued. Patient has been started on Flomax. He is stable for discharge home today. Please see EMR for further details. Discharge diagnosis 1. Urinary retention 2. Rectal bleeding 3. Recent hemorrhoidectomy Nurse practitioner note has been reviewed by physician. Signing provider agrees with the documented findings, assessment, and plan of care. Patient Condition at Discharge: Stable Plan - Discharge Summary Discharge Rx Participant: Yes New Discharge Prescriptions: New Tamsulosin [Flomax] 0.4 mg PO DAILY #7 cap No Action Omeprazole 20 mg PO DAILY Docusate [Colace] 100 mg PO BID #20 capsule Diazepam [Valium] 5 mg PO Q6H #10 tab Acetaminophen Tab [Tylenol] 325 mg PO Q8HR PRN PRN Reason: Pain Discharge Medication List Omeprazole 20 mg PO DAILY 07/02/17 [History] Docusate [Colace] 100 mg PO BID #20 capsule 11/28/18 [Rx] Diazepam [Valium] 5 mg PO Q6H #10 tab 12/03/18 [Rx] Acetaminophen Tab [Tylenol] 325 mg PO Q8HR PRN 12/04/18 [History] Tamsulosin [Flomax] 0.4 mg PO DAILY #7 cap 12/05/18 [Rx] Follow up Appointment(s)/Referral(s): Marely Johnson DO [Primary Care Provider] - 1-2 days Alejandro Martinez MD [STAFF PHYSICIAN] - 1 Week Zeyad Perez MD [Family Provider] - 1 Week Patient Instructions/Handouts: *Surgery [facility] - ([facility]) Hemorrhoidectomy Post-Op Instructions, Rectal Bleeding (DC), Hemorrhoidectomy (DC) Activity/Diet/Wound Care/Special Instructions: METAMUCIL THREE TIMES A DAY
[2018-12-05 14:22] VITALS: BP 99/53
--- NOTE | 2018-12-05 14:37 | P.CON ---
Consult Note - . Assessment/Plan:: Reason for consult-medical management History of present illness-there is a pleasant 53-year-old gentleman with a past medical history significant for early onset Alzheimer's dementia is admitted under general surgery service for rectal bleeding status post hemorrhoidectomy. Hospitalist service was consulted for medical management. At the time examination the patient was at his baseline mental status as per his . He did not complain of any chest pain racing heart, no cough no shortness breath, no abdominal pain, no nausea and vomiting, or diarrhea constipation, no tingling numbness on his extremities, and additional rest. Apparently patient had a hemorrhoidectomy on 11/28/2018. Yesterday morning he was straining to go to the bathroom to have a bowel movement. After he had his bowel movement he developed rectal pain and then noticed rectal bleeding. He therefore came to the ER for further admission and management. He had several bowel movements vision or blurry in the ER. He was is admitted to the general surgery service. He was taken to the OR in the evening yesterday for exam under general anesthesia. He underwent suture repair of the rectal bleeding. Apparently had mucosal edge bleeding at the site of hemorrhoidectomy. Status post procedure the patient was admitted to be monitored. Past medical history - Early-onset Alzheimer's disease - C KD - GERD Past surgical history - Hemorrhoidectomy - Right foot surgery for injury - ACL repair of the right knee Family history - Significant for cancer in the father, brother and sister Social history - Patient apparently smokes cigarettes - No history alcohol or any other drug abuse. Review of systems - All systems reviewed review of systems negative except for what that were discussed in the HPI Physical exam On exam, alert and oriented x3. HEENT: Conjunctivae normal. eyes normal. NECK: No JVD. No thyroid enlargement. No LNs CARDIOVASCULAR: S1, S2 muffled. No murmur RESPIRATION: Breath sounds diminished in the bases. No rhonchi or crackles. No bronchial breathing. ABDOMEN: Soft, nontender . No guarding. no masses palpable. No ascites, No hepatosplenomegaly.Bowel sounds heard. LEGS: No edema. no swelling NERVOUS SYSTEM: Cranial N 2-12 grossly normal. Moves all 4 limbs. No focal deficits. No sensory deficit. No signs of cerebellar dysfucntion. Skin: no ulcer no rash Joints: No active swelling. No inflammation. Lymphatic system. No LN neck axilla or groin. Impression - Anemia due to blood loss - Status post hemorrhoidectomy and mucosal bleeding status post suturing - Early-onset Alzheimer's - GERD Plan - Patient is admitted under general surgery service - Hospitalist service consulted for medical management - Patient's hemoglobin is 7.4 this morning but is not complaining of any lightheadedness or dizziness, he does not complain of any chest pain racing heart, he does not complain of any cough or shortness of breath. His blood pressure in the morning was on the lower side. Right now at the time of my examination it was 99/53 - We will monitor the patient's blood pressure and the patient's hemoglobin. There patient complains of no more bleeding episodes. - DVT and GI prophylaxis as per the primary admitting team - We will monitor the patient along the course
--- NOTE | 2018-12-05 15:50 | P.GSCN ---
History of Present Illness Consult date: 12/05/18 Reason for Consult: Urinary retention History of present illness: The patient is a 53-year-old male who originally underwent hemorrhoidectomy on 11/28/2018. He says that he had some difficulties with increased urinary frequency and constipation following the surgery. He also developed severe rectal bleeding and was admitted on 12/04 for treatment of it. He was discovered to be in urinary retention and a catheter was placed. He underwent repair of a rectal tear on 12/04. His catheter was removed this morning and he has been started on tamsulosin. The patient has no previous history of urinary retention. He says he normally voids every 3-4 hours during the day and only rarely at night. He described a good urinary flow and felt that he was voiding completely prior to his hemorrhoid surgery. Review of Systems - Constitutional Denies chills, Denies fever - Cardiovascular Denies shortness of breath - Respiratory Denies wheezing - Gastrointestinal Reports as per HPI - Genitourinary Reports as per HPI Past Medical History Past Medical History: GERD/Reflux Additional Past Medical History / Comment(s): hemorrhoids,anemia, "chronic kidney disease when taking certain medications", early onset alzheimers History of Any Multi-Drug Resistant Organisms: None Reported Past Surgical History: Hernia Repair, Orthopedic Surgery Additional Past Surgical History / Comment(s): ACL rt knee, rt foot surgery from injury, umbilical hernia, hemorroidectomy Past Anesthesia/Blood Transfusion Reactions: No Reported Reaction Additional Past Anesthesia/Blood Transfusion Reaction / Comm: Bilateral v asectomy Past Psychological History: Anxiety Additional Psychological History / Comment(s): early on set alzheimers Smoking Status: Current some day smoker Past Alcohol Use History: None Reported Additional Past Alcohol Use History / Comment(s): started smoking at age 25, 1/2 ppd Past Drug Use History: None Reported - Past Family History Mother Family Medical History: No Reported History Father Family Medical History: Cancer Sister(s) Family Medical History: Cancer Brother(s) Family Medical History: Cancer Medications and Allergies Home Medications Medication Instructions Recorded Confirmed Type Omeprazole 20 mg PO DAILY 07/02/17 12/04/18 History Docusate [Colace] 100 mg PO BID #20 capsule 11/28/18 12/04/18 Rx Diazepam [Valium] 5 mg PO Q6H #10 tab 12/03/18 12/04/18 Rx Acetaminophen Tab [Tylenol] 325 mg PO Q8HR PRN 12/04/18 12/04/18 History Tamsulosin [Flomax] 0.4 mg PO DAILY #7 cap 12/05/18 Rx Allergies Allergy/AdvReac Type Severity Reaction Status Date / Time No Known Allergies Allergy Verified 12/04/18 10:45 Surgical - Exam Vital Signs Temp Pulse Resp BP Pulse Ox 97.9 F 73 18 98/67 98 12/04/18 10:42 12/04/18 10:42 12/04/18 10:42 12/04/18 10:42 12/04/18 10:42 - General well developed, well nourished - ENT no hearing loss - Neck no masses, no lymphadectomy - Respiratory normal respiratory effort - Abdomen Abdomen: soft, non tender, no organomegaly - Genitourinary normal penis with no external lesions, testicles non-tender Results - Labs 12/05/18 08:10 12/05/18 08:08 Abnormal Lab Results - Last 24 Hours (Table) 12/04/18 12/05/18 12/05/18 Range/Units 11:15 08:08 08:10 RBC 2.58 L (4.30-5.90) m/uL Hgb 7.4 L D (13.0-17.5) gm/dL Hct 22.5 L (39.0-53.0) % Chloride 110 H (98-107) mmol/L Calcium 8.0 L (8.4-10.2) mg/dL ALT 20 L (21-72) U/L Total Protein 4.6 L (6.3-8.2) g/dL Albumin 2.4 L (3.5-5.0) g/dL Crossmatch See Detail Diabetes panel 12/05/18 Range/Units 08:08 Sodium 138 (137-145) mmol/L Potassium 4.0 (3.5-5.1) mmol/L Chloride 110 H (98-107) mmol/L Carbon Dioxide 22 (22-30) mmol/L BUN 12 (9-20) mg/dL Creatinine 1.18 (0.66-1.25) mg/dL Glucose 88 (74-99) mg/dL Calcium 8.0 L (8.4-10.2) mg/dL AST 18 (17-59) U/L ALT 20 L (21-72) U/L Alkaline Phosphatase 68 (38-126) U/L Total Protein 4.6 L (6.3-8.2) g/dL Albumin 2.4 L (3.5-5.0) g/dL Calcium panel 12/05/18 Range/Units 08:08 Calcium 8.0 L (8.4-10.2) mg/dL Albumin 2.4 L (3.5-5.0) g/dL Pituitary panel 12/05/18 Range/Units 08:08 Sodium 138 (137-145) mmol/L Potassium 4.0 (3.5-5.1) mmol/L Chloride 110 H (98-107) mmol/L Carbon Dioxide 22 (22-30) mmol/L BUN 12 (9-20) mg/dL Creatinine 1.18 (0.66-1.25) mg/dL Glucose 88 (74-99) mg/dL Calcium 8.0 L (8.4-10.2) mg/dL Adrenal panel 12/05/18 Range/Units 08:08 Sodium 138 (137-145) mmol/L Potassium 4.0 (3.5-5.1) mmol/L Chloride 110 H (98-107) mmol/L Carbon Dioxide 22 (22-30) mmol/L BUN 12 (9-20) mg/dL Creatinine 1.18 (0.66-1.25) mg/dL Glucose 88 (74-99) mg/dL Calcium 8.0 L (8.4-10.2) mg/dL Total Bilirubin 0.3 (0.2-1.3) mg/dL AST 18 (17-59) U/L ALT 20 L (21-72) U/L Alkaline Phosphatase 68 (38-126) U/L Total Protein 4.6 L (6.3-8.2) g/dL Albumin 2.4 L (3.5-5.0) g/dL Assessment and Plan (1) Postoperative urinary retention Narrative/Plan: Urinary retention is not unusual following hemorrhoid surgery. A portion of this is most likely related to perineal pain and inability to relax the pelvic floor to initiate voiding. Constipation following the surgery can also be a factor. The patient's catheter was removed today and his postvoid residuals will be checked with a bladder scan unit. If they are relatively low within the patient can be discharged but I would suggest keeping him on tamsulosin 0.4 mg daily for another week. If he has no further difficulty voiding and no urologic follow-up will be necessary. If his postvoid residual remains elevated and the patient will either need to be instructed in self catheterization or a Yan catheter can be left in place over the weekend and removed Saturday morning. In that case he could be seen back in my office sometime later in the day to check a postvoid residual. Current Visit: Yes Status: Acute Code(s): N99.89 - OTH POSTPROCEDURAL COMPLICATIONS AND DISORDERS OF SYS; R33.8 - OTHER RETENTION OF URINE SNOMED Code(s): 264384379
[2018-12-05] MEDS: LACTATED RINGERS 1,000 ML IV SCH (16:30)
== END 2018-12-05 18:06 | disposition home or self-care (01) | DRG 908 ==
LOC: EC 10:33 → 2SICU 15:59 → 3NMEDONC 18:09
PROVIDERS: ADMIT Surgery; ATTEND Surgery
PROC: 0W3P7ZZ Control Bleeding in Gastrointestinal Tract, Via Natural or Artificial Opening (ICD-10-PCS; principal; 2018-12-04 16:36)
DX: K91.840 Postprocedural hemorrhage of a digestive system organ or structure following a digestive system procedure (principal); K62.5 Hemorrhage of anus and rectum; Y83.8 Other surgical procedures as the cause of abnormal reaction of the patient, or of later complication, without mention of misadventure at the time of the procedure; D50.0 Iron deficiency anemia secondary to blood loss (chronic); D63.1 Anemia in chronic kidney disease; F02.80 Dementia in other diseases classified elsewhere, unspecified severity, without behavioral disturbance, psychotic disturbance, mood disturbance, and anxiety; F17.210 Nicotine dependence, cigarettes, uncomplicated; F41.9 Anxiety disorder, unspecified; G30.0 Alzheimer's disease with early onset; K21.9 Gastro-esophageal reflux disease without esophagitis; K59.00 Constipation, unspecified; N18.9 Chronic kidney disease, unspecified; Z79.899 Other long term (current) drug therapy; R33.8 Other retention of urine
CPT/HCPCS: 36415; 51702; 51798; 80053; 81003; 84484; 85025; 85027; 85730; 86850; 86900; 86901; 86920; 96360; 96361; 96374; 96375; 99284

== ENCOUNTER 2018-12-06 14:49 | Emergency (ER) | payer BC ==
[2018-12-06] MEDS ORDERED: SODIUM CHLORIDE 0.9% 1,000 ML IV STA ×2 (15:52)
[2018-12-06 16:13] LABS: Basophils % (A) 0 %; Eosinophils # (A) 0.2 k/uL (0-0.7); Eosinophils % (A) 3 %; HCT 20.6 % (39.0-53.0); Lymphocytes # (A) 1.1 k/uL (1.0-4.8); Lymphocytes % (A) 18 %; MCH 29.2 pg (25.0-35.0); MCHC 33.6 g/dL (31.0-37.0); MCV 86.9 fL (80.0-100.0); Mean Platelet Volume 7.4; Monocytes # (A) 0.5 k/uL (0-1.0); Monocytes % (A) 8 %; Neutrophils # (A) 4.3 k/uL (1.3-7.7); Neutrophils % (A) 69 %; Platelet Count 240 k/uL (150-450); RBC 2.37 m/uL (4.30-5.90); RDW 14.8 % (11.5-15.5); WBC 6.2 k/uL (3.8-10.6)
[2018-12-06 16:14] LABS: Albumin 2.9 g/dL (3.5-5.0); Calcium 8.5 mg/dL (8.4-10.2); Magnesium 2.2 mg/dL (1.6-2.3); Potassium 4.2 mmol/L (3.5-5.1); Total Bilirubin 0.2 mg/dL (0.2-1.3); Total Protein 5.2 g/dL (6.3-8.2)
[2018-12-06 16:19] LABS: HGB 6.9 gm/dL (13.0-17.5)
[2018-12-06 16:28] LABS: Appearance,Urine Clear (Clear); Bilirubin,Urine Negative (Negative); Blood,Urine Trace (Negative); Color,Urine Light Yellow; Glucose,Urine (UA) Negative (Negative); Hyaline Casts,Urine 3 /lpf (0-2); Ketones,Urine Negative (Negative); Leukocyte Esterase,Urine Trace (Negative); Mucus,Urine Rare /hpf; Nitrite,Urine Negative (Negative); PH, Urine 6.5 (5.0-8.0); Protein,Urine Negative (Negative); RBC,Urine 4 /hpf (0-5); Specific Gravity,Urine 1.008 (1.001-1.035); Urobilinogen,Urine <2.0 mg/dL (<2.0); WBC,Urine 2 /hpf (0-5)
--- NOTE | 2018-12-06 16:31 | ED ---
Dizziness HPI - General Chief Complaint: Dizziness Stated Complaint: Dizziness Time Seen by Provider: 12/06/18 15:02 Source: patient, family, RN notes reviewed, old records reviewed Mode of arrival: wheelchair Limitations: no limitations - History of Present Illness Initial Comments: This is a 53-year-old male with a history of a recent hemorrhoidectomy and also a recent repair of a bleed postoperative require transfusion was back today with complaints of dizziness lightheadedness. He is found have a blood pressure of 81/53 . When he had from a bending over position he felt lightheaded and dizzy. He also had a straight cath this morning 500 mL of urine out he did have urinary retention after the surgery. He denies any fevers chills sweats he states the bleeding seems to be controlled with this time. MD Complaint: dizziness, lightheadedness - Related Data Home Medications Medication Instructions Recorded Confirmed Omeprazole 20 mg PO DAILY 07/02/17 12/06/18 Acetaminophen Tab [Tylenol] 325 mg PO Q8HR PRN 12/04/18 12/06/18 ALPRAZolam [Xanax] 0.5 mg PO DAILY PRN 12/06/18 12/06/18 Previous Rx's Medication Instructions Recorded Docusate [Colace] 100 mg PO BID #20 capsule 11/28/18 Tamsulosin [Flomax] 0.4 mg PO DAILY #7 cap 12/05/18 Allergies Allergy/AdvReac Type Severity Reaction Status Date / Time No Known Allergies Allergy Verified 12/06/18 15:13 Review of Systems ROS Statement: Those systems with pertinent positive or pertinent negative responses have been documented in the HPI. ROS Other: All systems not noted in ROS Statement are negative. Past Medical History Past Medical History: GERD/Reflux Additional Past Medical History / Comment(s): hemorrhoids,anemia, "chronic kidney disease when taking certain medications", early onset alzheimers History of Any Multi-Drug Resistant Organisms: None Reported Past Surgical History: Hernia Repair, Orthopedic Surgery Additional Past Surgical History / Comment(s): ACL rt knee, rt foot surgery from injury, umbilical hernia, hemorroidectomy Past Anesthesia/Blood Transfusion Reactions: No Reported Reaction Additional Past Anesthesia/Blood Transfusion Reaction / Comment(s): Bilateral v asectomy Past Psychological History: Anxiety Smoking Status: Current some day smoker Past Alcohol Use History: Daily Past Drug Use History: None Reported - Past Family History Mother Family Medical History: No Reported History Father Family Medical History: Cancer Sister(s) Family Medical History: Cancer Brother(s) Family Medical History: Cancer General Exam - General Exam Comments Initial Comments: This is a well-developed asthenic appearing male who is awake alert oriented 3 Limitations: no limitations General appearance: alert, in no apparent distress Head exam: Present: atraumatic, normocephalic, normal inspection Eye exam: Present: PERRL, EOMI, other (Pale conjunctiva). Absent: scleral icterus, conjunctival injection, periorbital swelling ENT exam: Present: normal exam, mucous membranes moist Neck exam: Present: normal inspection. Absent: tenderness, meningismus, lymphadenopathy Respiratory exam: Present: normal lung sounds bilaterally. Absent: respiratory distress, wheezes, rales, rhonchi, stridor Cardiovascular Exam: Present: regular rate, normal rhythm, normal heart sounds. Absent: systolic murmur, diastolic murmur, rubs, gallop, clicks GI/Abdominal exam: Present: soft, normal bowel sounds. Absent: distended, tenderness, guarding, rebound, rigid Extremities exam: Present: normal inspection, full ROM, normal capillary refill. Absent: tenderness, pedal edema, joint swelling, calf tenderness Back exam: Present: normal inspection Neurological exam: Present: alert, oriented X3, CN II-XII intact Psychiatric exam: Present: normal affect, normal mood Skin exam: Present: warm, dry, intact, normal color. Absent: rash Course Vital Signs 12/06/18 12/06/18 12/06/18 14:51 16:00 16:30 Temperature 98.3 F Pulse Rate 69 61 56 L Respiratory 18 11 L 9 L Rate Blood Pressure 96/61 104/67 104/67 O2 Sat by Pulse 99 Oximetry 12/06/18 12/06/18 12/06/18 17:00 17:30 18:54 Temperature 98.5 F Pulse Rate 57 L 62 69 Respiratory 16 10 L 16 Rate Blood Pressure 108/77 109/79 106/69 O2 Sat by Pulse Oximetry 12/06/18 12/06/18 19:04 19:34 Temperature 98.6 F 98.5 F Pulse Rate 64 70 Respiratory 16 19 Rate Blood Pressure 113/73 116/77 O2 Sat by Pulse 98 Oximetry EKG Findings - EKG Results: EKG: interpreted by ABHI PLASCENCIA, sinus rhythm, normal axis, normal QRS, normal ST/T, no acute changes (Normal sinus rhythm a 63 KS interval 134 QRS duration 80 QT since QTC 424/433 st-t wave changes artifact is present) Medical Decision Making - Medical Decision Making Patient received blood transfusion reevaluation of her she feels much improved after the transfusion and IV hydration I had discussed the case with Dr. Perez patient will be discharged with outpatient follow-up as planned. - Lab Data Result diagrams: 12/06/18 15:55 12/06/18 15:55 Lab Results 12/06/18 12/06/18 12/06/18 Range/Units 15:55 15:55 15:57 WBC 6.2 (3.8-10.6) k/uL RBC 2.37 L (4.30-5.90) m/uL Hgb 6.9 L* (13.0-17.5) gm/dL Hct 20.6 L (39.0-53.0) % MCV 86.9 (80.0-100.0) fL MCH 29.2 (25.0-35.0) pg MCHC 33.6 (31.0-37.0) g/dL RDW 14.8 (11.5-15.5) % Plt Count 240 (150-450) k/uL Neutrophils % 69 % Lymphocytes % 18 % Monocytes % 8 % Eosinophils % 3 % Basophils % 0 % Neutrophils # 4.3 (1.3-7.7) k/uL Lymphocytes # 1.1 (1.0-4.8) k/uL Monocytes # 0.5 (0-1.0) k/uL Eosinophils # 0.2 (0-0.7) k/uL Basophils # 0.0 (0-0.2) k/uL Sodium 141 (137-145) mmol/L Potassium 4.2 (3.5-5.1) mmol/L Chloride 111 H (98-107) mmol/L Carbon Dioxide 24 (22-30) mmol/L Anion Gap 6 mmol/L BUN 12 (9-20) mg/dL Creatinine 1.23 (0.66-1.25) mg/dL Est GFR (CKD-EPI)AfAm 77 (>60 ml/min/1.73 sqM) Est GFR (CKD-EPI)NonAf 67 (>60 ml/min/1.73 sqM) Glucose 97 (74-99) mg/dL Calcium 8.5 (8.4-10.2) mg/dL Magnesium 2.2 (1.6-2.3) mg/dL Total Bilirubin 0.2 (0.2-1.3) mg/dL AST 25 (17-59) U/L ALT 19 L (21-72) U/L Alkaline Phosphatase 74 (38-126) U/L Creatine Kinase 91 (55-170) U/L Total Protein 5.2 L (6.3-8.2) g/dL Albumin 2.9 L (3.5-5.0) g/dL Urine Color Urine Appearance (Clear) Urine pH (5.0-8.0) Ur Specific [place] (1.001-1.035) Urine Protein (Negative) Urine Glucose (UA) (Negative) Urine Ketones (Negative) Urine Blood (Negative) Urine Nitrite (Negative) Urine Bilirubin (Negative) Urine Urobilinogen (<2.0) mg/dL Ur Leukocyte Esterase (Negative) Urine RBC (0-5) /hpf Urine WBC (0-5) /hpf Hyaline Casts (0-2) /lpf Urine Mucus (None) /hpf Blood Type A Positive Blood Type Recheck No Antibody Screen NEGATIVE Crossmatch See Detail Spec Expiration Date 12/09/2018 - 235612/06/18 Range/Units 16:10 WBC (3.8-10.6) k/uL RBC (4.30-5.90) m/uL Hgb (13.0-17.5) gm/dL Hct (39.0-53.0) % MCV (80.0-100.0) fL MCH (25.0-35.0) pg MCHC (31.0-37.0) g/dL RDW (11.5-15.5) % Plt Count (150-450) k/uL Neutrophils % % Lymphocytes % % Monocytes % % Eosinophils % % Basophils % % Neutrophils # (1.3-7.7) k/uL Lymphocytes # (1.0-4.8) k/uL Monocytes # (0-1.0) k/uL Eosinophils # (0-0.7) k/uL Basophils # (0-0.2) k/uL Sodium (137-145) mmol/L Potassium (3.5-5.1) mmol/L Chloride (98-107) mmol/L Carbon Dioxide (22-30) mmol/L Anion Gap mmol/L BUN (9-20) mg/dL Creatinine (0.66-1.25) mg/dL Est GFR (CKD-EPI)AfAm (>60 ml/min/1.73 sqM) Est GFR (CKD-EPI)NonAf (>60 ml/min/1.73 sqM) Glucose (74-99) mg/dL Calcium (8.4-10.2) mg/dL Magnesium (1.6-2.3) mg/dL Total Bilirubin (0.2-1.3) mg/dL AST (17-59) U/L ALT (21-72) U/L Alkaline Phosphatase (38-126) U/L Creatine Kinase (55-170) U/L Total Protein (6.3-8.2) g/dL Albumin (3.5-5.0) g/dL Urine Color Light Yellow Urine Appearance Clear (Clear) Urine pH 6.5 (5.0-8.0) Ur Specific [place] 1.008 (1.001-1.035) Urine Protein Negative (Negative) Urine Glucose (UA) Negative (Negative) Urine Ketones Negative (Negative) Urine Blood Trace H (Negative) Urine Nitrite Negative (Negative) Urine Bilirubin Negative (Negative) Urine Urobilinogen <2.0 (<2.0) mg/dL Ur Leukocyte Esterase Trace H (Negative) Urine RBC 4 (0-5) /hpf Urine WBC 2 (0-5) /hpf Hyaline Casts 3 H (0-2) /lpf Urine Mucus Rare H (None) /hpf Blood Type Blood Type Recheck Antibody Screen Crossmatch Spec Expiration Date Disposition Clinical Impression: Orthostatic hypotension, Dehydration, Symptomatic anemia, Postop check Disposition: HOME SELF-CARE Condition: Good Instructions (If sedation given, give patient instructions): Dizziness (ED), Anemia (ED), Dehydration (ED) Is patient prescribed a controlled substance at d/c from ED?: No Referrals: Marely Johnson DO [Primary Care Provider] - 1-2 days
[2018-12-06 20:09] VITALS: TEMP 98.5
[2018-12-06 21:05] VITALS: BP 116/86; PULSE 64; RESP 16
== END 2018-12-06 21:05 | disposition home or self-care (01) ==
LOC: EC 14:49
DX: Z48.815 Encounter for surgical aftercare following surgery on the digestive system (principal); I95.1 Orthostatic hypotension; E86.0 Dehydration; D64.9 Anemia, unspecified; K21.9 Gastro-esophageal reflux disease without esophagitis; F17.200 Nicotine dependence, unspecified, uncomplicated; Z79.899 Other long term (current) drug therapy; Z98.890 Other specified postprocedural states
CPT/HCPCS: 51798; 36415; 93005; 86900; 86901; 80053; 82550; 83735; 85025; 86850; 86920; 81001; 99285; 96360; 96361 ×4; P9016

== ENCOUNTER 2021-04-17 20:57 | Emergency (ER) | payer BC, MEDICAID ==
[2021-04-17 21:16] VITALS: BP 130/94; PULSE 52; RESP 18; TEMP 97.7
--- NOTE | 2021-04-17 21:17 | ED ---
General Adult HPI - General Stated complaint: SOB,Hands turning blue Time Seen by Provider: 04/17/21 21:14 - History of Present Illness Initial comments: Patient seen for ATP purposes: 55 year-old male patient presenting for evaluation of shortness of breath and discoloration to the hands. He started having shortness of breath around 8pm. He does have history of Alzheimers and is unable to provide history. He scheduled for stress test this month. Patient denies any pain. Denies any injury to the hands. States his hands are blue in color. Denies any numbness or tingling. - Related Data Home Medications Medication Instructions Recorded Confirmed Omeprazole 20 mg PO DAILY 07/02/17 12/06/18 Acetaminophen Tab [Tylenol] 325 mg PO Q8HR PRN 12/04/18 12/06/18 ALPRAZolam [Xanax] 0.5 mg PO DAILY PRN 12/06/18 12/06/18 Previous Rx's Medication Instructions Recorded Docusate [Colace] 100 mg PO BID #20 capsule 11/28/18 Tamsulosin [Flomax] 0.4 mg PO DAILY #7 cap 12/05/18 Azithromycin [Zithromax Z-pack (6 0 mg PO DIRECTED #6 tab 04/18/21 tabs)] Allergies Allergy/AdvReac Type Severity Reaction Status Date / Time No Known Allergies Allergy Verified 04/17/21 21:16 Review of Systems ROS Statement: Those systems with pertinent positive or pertinent negative responses have been documented in the HPI. ROS Other: All systems not noted in ROS Statement are negative. Past Medical History Past Medical History: GERD/Reflux Additional Past Medical History / Comment(s): hemorrhoids,anemia, "chronic kidney disease when taking certain medications", early onset alzheimers History of Any Multi-Drug Resistant Organisms: None Reported Past Surgical History: Hernia Repair, Orthopedic Surgery Additional Past Surgical History / Comment(s): ACL rt knee, rt foot surgery from injury, umbilical hernia, hemorroidectomy Past Anesthesia/Blood Transfusion Reactions: No Reported Reaction Additional Past Anesthesia/Blood Transfusion Reaction / Comment(s): Bilateral vasectomy Past Psychological History: Anxiety Past Alcohol Use History: Daily Past Drug Use History: None Reported - Past Family History Mother Family Medical History: No Reported History Father Family Medical History: Cancer Sister(s) Family Medical History: Cancer Brother(s) Family Medical History: Cancer General Exam General appearance: alert, in no apparent distress, other (THis is a well developed, well nourished adult male in no acute distress. ) Respiratory exam: Present: normal lung sounds bilaterally. Absent: respiratory distress, wheezes, rales, rhonchi, stridor Cardiovascular Exam: Present: regular rate, normal rhythm, normal heart sounds. Absent: systolic murmur, diastolic murmur, rubs, gallop, clicks GI/Abdominal exam: Present: soft, normal bowel sounds. Absent: distended, tenderness, guarding, rebound, rigid Neurological exam: Present: alert, CN II-XII intact. Absent: oriented X3 (oriened x1) Psychiatric exam: Present: normal affect, normal mood Skin exam: Present: warm, dry, intact, normal color. Absent: rash Course Vital Signs 04/17/21 21:13 Temperature 97.7 F Pulse Rate 52 L Respiratory 18 Rate Blood Pressure 130/94 O2 Sat by Pulse 100 Oximetry Medical Decision Making - Medical Decision Making 55 year-old male patient presented with for evaluation of shortness of breath and bluish discoloration to his hands. He does have history of Alzheime rs. States symptoms started today. We were able to remove the blue discoloration from his hands using an alcohol swab. He is wearing blue jeans and this is most likely dye transfer. Due to the shortness of breath we did obtain advance triage chest xray and COVID swab. Chest xray showed possible pneumonia and COVID was negative. Patient and left the department prior to being placed in a room. I did call with results of the chest xray and sent a prescription to his pharmacy. His initial vitals were unremarkable with oxygen saturation 100%. He was in no respiratory distress. They are instructed to follow up with the primary care physician tomorrow. Return parameters discussed in detail. Patient's verbalizes understanding. My attending is Dr. Gray. - Lab Data Lab Results 04/17/21 Range/Units 21:25 Coronavirus (PCR) Not Detected (Not Detectd) - Radiology Data Radiology results: report reviewed, image reviewed Chest x-ray was obtained. Report was reviewed in its entirety. Impression by Dr. Anaya shows subtle patchy opacity bilaterally could relate to multifocal pneumonia in the appropriate clinical setting. Disposition Clinical Impression: Multifocal pneumonia Disposition: HOME SELF-CARE Condition: Good Prescriptions: Azithromycin [Zithromax Z-pack (6 tabs)] 0 mg PO DIRECTED #6 tab Is patient prescribed a controlled substance at d/c from ED?: No Referrals: Marely Johnson DO [Primary Care Provider] - 1-2 days
--- NOTE | 2021-04-17 21:29 | XR ---
EXAMINATION TYPE: XR chest 2V DATE OF EXAM: 04/17/2021 COMPARISON: NONE HISTORY: Shortness of breath. TECHNIQUE: Frontal and lateral views of the chest are obtained. FINDINGS: Subtle patchy opacity over the right infrahilar region and left base. No large effusion or pneumothorax. IMPRESSION: Subtle patchy opacity bilaterally could relate to multifocal pneumonia in the appropriat e clinical setting.
== END 2021-04-18 01:44 | disposition home or self-care (01) ==
LOC: EC 20:57
DX: J18.9 Pneumonia, unspecified organism (principal); K21.9 Gastro-esophageal reflux disease without esophagitis; N18.9 Chronic kidney disease, unspecified; Z79.899 Other long term (current) drug therapy; Z20.822 Contact with and (suspected) exposure to COVID-19
CPT/HCPCS: 71046; 87635; 99284

== ENCOUNTER → 2021-05-04 | Outpatient (CLI) | payer MEDICAID ==
--- NOTE | 2021-05-04 15:09 | EST ---
EXERCISE STRESS AGE: 56 SEX: M HT: 6' WT: 173 lbs. PROTOCOL: Mariano STAGE: 4 DURATION OF EXERCISE: 10:00 HEART RATE REST: 61 BLOOD PRESSURE REST: 119/86 MAXIMUM HEART RATE ACHIEVED: 140 MAXIMUM BLOOD PRESSURE: 162/81 85% MPHR: 139 100% MPHR: 164 METS: 11.8 INDICATIONS: Chest pain. CLINICAL INFORMATION: Baseline EKG shows sinus rhythm, normal axis, normal intervals. Patient exercised on Mariano protocol for a total of 10 minutes, achieving 11 METS, 85% of predicted maximal heart rate, without chest pain or diagnostic ST-segment depression. CONCLUSIONS: 1. Good exercise tolerance. 2. Negative stress test by EKG criteria. MMODL / IJN: [id number] /
== END | disposition home or self-care (01) ==
LOC: RADNMMAIN 08:43
PROVIDERS: ATTEND Family Medicine
DX: R07.89 Other chest pain (principal)
CPT/HCPCS: 93017

== ENCOUNTER 2023-07-01 16:40 | Inpatient (IN) | payer MEDICAID, MEDICARE ==
[2023-07-01] MEDS: LORazepam 2 MG/ML INJ IV STA (17:05)
--- NOTE | 2023-07-01 17:14 | ED ---
General Adult HPI - General Stated complaint: Transfer-Septic Time Seen by Provider: 07/01/23 16:40 Source: patient, RN notes reviewed, old records reviewed - History of Present Illness Initial comments: This is a 58-year-old male with picks disease. Patient at his baseline is agitated however that agitation is increased over the last 2 weeks. Patient resides [facility] a [facility]. Patient went to the hospital and was determined that he had pneumonia and was septic. Patient had a lactic acid of 5.3 and they started Zosyn and vancomycin prior to arrival here. Patient is unable to give any history because of his severe dementia - Related Data Allergies Allergy/AdvReac Type Severity Reaction Status Date / Time No Known Allergies Allergy Verified 07/01/23 17:22 Review of Systems ROS Statement: Those systems with pertinent positive or pertinent negative responses have been documented in the HPI. ROS Other: All systems not noted in ROS Statement are negative. Past Medical History Past Medical History: GERD/Reflux Additional Past Medical History / Comment(s): hemorrhoids,anemia, "chronic kidney disease when taking certain medications", early onset alzheimers History of Any Multi-Drug Resistant Organisms: None Reported Past Surgical History: Hernia Repair, Orthopedic Surgery Additional Past Surgical History / Comment(s): ACL rt knee, rt foot surgery from injury, umbilical hernia, hemorroidectomy Past Anesthesia/Blood Transfusion Reactions: No Reported Reaction Additional Past Anesthesia/Blood Transfusion Reaction / Comment(s): Bilateral vasectomy Past Psychological History: Anxiety Past Alcohol Use History: Daily Past Drug Use History: None Reported - Past Family History Mother Family Medical History: No Reported History Father Family Medical History: Cancer Sister(s) Family Medical History: Cancer Brother(s) Family Medical History: Cancer General Exam - General Exam Comments Initial Comments: GENERAL: Patient is well-developed and well-nourished. Patient is nontoxic and well- hydrated and is in an agitated state ENT: Neck is soft and supple. No significant lymphadenopathy is noted. Oropharynx is clear. Moist mucous membranes. Neck has full range of motion without eliciting any pain. EYES: The sclera were anicteric and conjunctiva were pink and moist. Extraocular movements were intact and pupils were equal round and reactive to light. Eyelids were unremarkable. PULMONARY: Unlabored respirations. Good breath sounds bilaterally. No audible rales rhonchi or wheezing was noted. CARDIOVASCULAR: There is a regular rate and rhythm without any murmurs gallops or rubs. ABDOMEN: Soft and nontender with normal bowel sounds. SKIN: Skin is clear with no lesions or rashes and otherwise unremarkable. NEUROLOGIC: Patient is alert and oriented x 0. Cranial nerves II through XII are grossly intact. Motor motor is intact unable to assess speech MUSCULOSKELETAL: Normal extremities with adequate strength and full range of motion. LYMPHATICS: No significant lymphadenopathy is noted PSYCHIATRIC: Unable to at this time Course Vital Signs 07/01/23 17:17 Temperature 102.6 F H Pulse Rate 107 H Respiratory 18 Rate Blood Pressure 92/67 O2 Sat by Pulse 93 L Oximetry Medical Decision Making - Medical Decision Making Was pt. sent in by a medical professional or institution (, PA, SEAT JOINER, urgent care, hospital, or [facility]...) When possible be specific @ -Patient was sent to us from [facility] Did you speak to anyone other than the patient for history (EMS, parent, family, police, friend...)? What history was obtained from this source @ -I spoke with the ER [facility] for all of the history Did you review nursing and triage notes (agree or disagree)? Why? @ -I reviewed and agree with nursing and triage notes Were old charts reviewed (outside hosp., previous admission, EMS record, old EKG, old radiological studies, urgent care reports/EKG's, [facility] records)? Report findings @ -I reviewed the chart lab work and radiological studies on this patient Differential Diagnosis (chest pain, altered mental status, abdominal pain women, abdominal pain men, vaginal bleeding, weakness, fever, dyspnea, syncope, headache, dizziness, GI bleed, back pain, seizure, CVA, palpatations, mental health, musculoskeletal)? @ -Not applicable EKG interpreted by me (3pts min.). @ -As above X-rays interpreted by me (1pt min.). @ -None done CT interpreted by me (1pt min.). @ -None done U/S interpreted by me (1pt. min.). @ -None done What testing was considered but not performed or refused? (CT, X-rays, U/S, labs)? Why? @ -None What meds were considered but not given or refused? Why? @ -None Did you discuss the management of the patient with other professionals (professionals i.e. DrNara, PA, SEAT JOINER, lab, RT, psych nurse, social media sr strategy manager, ticket maker, teacher, occupational health and safety officer, business case analyst)? Give summary @ -I spoke with and he agreed to meet the patient Was smoking cessation discussed for >3mins.? @ -No Was critical care preformed (if so, how long)? @ -No Were there social determinants of health that impacted care today? How? (Homelessness, low income, unemployed, alcoholism, drug addiction, transportation, low edu. Level, literacy, decrease access to med. care, fci, rehab)? @ -No Was there de-escalation of care discussed even if they declined (Discuss DNR or withdrawal of care, Hospice)? DNR status @ -No What co-morbidities impacted this encounter? (DM, HTN, Smoking, COPD, CAD, Cancer, CVA, ARF, Chemo, Hep., AIDS, mental health diagnosis, sleep apnea, morbid obesity)? @ -None Was patient admitted / discharged? Hospital course, mention meds given and route, prescriptions, significant lab abnormalities, going to OR and other pertinent info. @ -I spoke with Dr. Gross and he agreed admit the patient. Patient was so agitated given 2 of Ativan on arrival and that did not come down completely so the patient then received 20 mg of Geodon IM family is currently discussing comfort care he is currently in no code Undiagnosed new problem with uncertain prognosis? @ -No Drug Therapy requiring intensive monitoring for toxicity (Heparin, Nitro, Insulin, Cardizem)? @ -No Were any procedures done? @ -No Diagnosis/symptom? @ -Pneumonia Acute, or Chronic, or Acute on Chronic? @ -Acute Uncomplicated (without systemic symptoms) or Complicated (systemic symptoms)? @ -Complicated Side effects of treatment? @ -No Exacerbation, Progression, or Severe Exacerbation? @ -No Poses a threat to life or bodily function? How? (Chest pain, [place], [place], pneumonia, PE, COPD, DKA, ARF, appy, cholecystitis, CVA, Diverticulitis, Homicidal, Suicidal, threat to staff... and all critical care pts) @ -Yes this could lead to sepsis and Diagnosis/symptom? @ -Sepsis Acute, or Chronic, or Acute on Chronic? @ -Acute Uncomplicated (without systemic symptoms) or Complicated (systemic symptoms)? @ -Complicated Side effects of treatment? @ -None Exacerbation, Progression, or Severe Exacerbation] @ -No Poses a threat to life or bodily function? @ -Yes this can cause hypoperfusion and endorgan dysfunction Disposition Clinical Impression: Pneumonia, Sepsis Disposition: ADMITTED IP TO THIS HOSP Time of Disposition: 17:22
[2023-07-01] MEDS ORDERED: PNEUMONIA PROTOCOL UTILIZED 1 EACH MISC PO PRN (17:24)
[2023-07-01] MEDS ORDERED: VANCOMYCIN IV PER PHARMACY 1 EACH MISC MISCELLANE PRN (17:24)
[2023-07-01] MEDS: SODIUM CHLORIDE 0.9% 1,000 ML IV STA (17:27)
[2023-07-01] MEDS: SODIUM CHLORIDE 0.9% 500 ML 500 ML IV STA (17:27)
[2023-07-01] MEDS ORDERED: VANCOMYCIN 1,250 MG in SODIUM CHLORIDE 0.9% 250 ML IVPB STA (17:32)
[2023-07-01] MEDS: ZIPRASIDONE 20 MG VIAL IM STA (17:34)
[2023-07-01] MEDS: SODIUM CHLORIDE 0.9% 500 ML 500 ML IV ONE (17:48)
[2023-07-01] MEDS: SODIUM CHLORIDE 0.9% 1,000 ML IV ONE (17:48)
[2023-07-01] MEDS ORDERED: ONDANSETRON 4 MG/2 ML VIAL IVP PRN (18:15)
[2023-07-01] MEDS ORDERED: NALOXONE 0.4 MG/ML 1 ML VIAL IV PRN (18:15)
[2023-07-01] MEDS ORDERED: ACETAMINOPHEN IV (For NPO) 1,000 MG in EMPTY BAG 1 BAG IVPB PRN (18:17)
[2023-07-01] MEDS: ACETAMINOPHEN IV (For NPO) 1,000 MG in EMPTY BAG 1 BAG IVPB STA (18:22)
[2023-07-01] MEDS: IBUPROFEN IV 800 MG in SODIUM CHLORIDE 0.9% 250 ML IV ONE (18:23)
[2023-07-01] MEDS: VANCOMYCIN 1,250 MG in SODIUM CHLORIDE 0.9% 250 ML IVPB SCH (20:44)
[2023-07-01] MEDS: DEXTROSE 5%-0.9% NACL 1,000 ML IV SCH (20:45)
[2023-07-01] MEDS: OLANZapine 10 MG VIAL IM STA (22:01)
[2023-07-01] MEDS: diphenhydrAMINE 50 MG/ML 1 ML VIAL IVP PRN (22:17)
[2023-07-02] MEDS: PIPERACILLIN-TAZOBACTAM 3.375 GM in SODIUM CHLORIDE 0.9% 100 ML IVPB SCH (00:08)
[2023-07-02] MEDS: LORazepam 2 MG/ML INJ IV STA (02:39)
[2023-07-02 03:41] VITALS: BP 150/88; PULSE 90; RESP 19
[2023-07-02] MEDS: diphenhydrAMINE 50 MG/ML 1 ML VIAL IVP STA (04:08)
[2023-07-02 07:19] VITALS: TEMP 100.6
[2023-07-02 08:08] LABS: HCT 40.9 % (39.0-53.0); HGB 13.7 gm/dL (13.0-17.5); MCH 32.8 pg (25.0-35.0); MCHC 33.4 g/dL (31.0-37.0); MCV 98.3 fL (80.0-100.0); Mean Platelet Volume 7.6; Platelet Count 308 k/uL (150-450); RBC 4.16 m/uL (4.30-5.90); RDW 13.2 % (11.5-15.5); WBC 14.6 k/uL (3.8-10.6)
[2023-07-02] MEDS: OLANZapine 10 MG VIAL IM PRN (08:11)
--- NOTE | 2023-07-02 08:49 | XR ---
EXAMINATION TYPE: XR chest 1V portable DATE OF EXAM: 07/02/2023 6:59 AM CLINICAL INDICATION:Male, 58 years old with history of pneumonia; [facility] COMPARISON: Chest radiographs from 04/17/2021. TECHNIQUE: XR chest 1V portable Frontal view of the chest. FINDINGS: Lungs/Pleura: There is no evidence of pleural effusion, focal consolidation, or pneumothorax. Pulmonary vascularity: Unremarkable. Heart/mediastinum: Cardiomediastinal silhouette is unremarkable. Musculoskeletal: No acute osseous pathology. IMPRESSION: Stable exam, no evidence for pneumonia.
[2023-07-02] MEDS ORDERED: ATIVAN IM PRN (08:52)
[2023-07-02] MEDS ORDERED: LORazepam 1 MG TAB PO PRN (08:52)
[2023-07-02 10:22] LABS: African American GFR (CKD) 60 (>60 ml/min/1.73 sqM); Anion Gap 8 mmol/L; Blood Urea Nitrogen 41 mg/dL (9-20); C Reactive Protein 1.3 mg/dL (<1.0); Calcium 8.7 mg/dL (8.4-10.2); Carbon Dioxide 20 mmol/L (22-30); Glucose 110 mg/dL (74-99); Non-African American GFR(CKD) 52 (>60 ml/min/1.73 sqM)
[2023-07-02 10:26] LABS: Chloride 133 mmol/L (98-107); Sodium 161 mmol/L (137-145)
[2023-07-02] MEDS ORDERED: ZIPRASIDONE 20 MG VIAL IM PRN (10:40)
[2023-07-02] MEDS ORDERED: ARTIFICIAL TEARS-HYPROMELLOSE DROPS 15 ML BTL BOTH EYES PRN (10:40)
[2023-07-02] MEDS ORDERED: GLYCOPYRROLATE 0.2 MG/ML 2 ML VIAL IVP PRN (10:40)
[2023-07-02] MEDS: MORPHINE SULFATE 4 MG/ML SYRINGE IVP ONE (11:43)
[2023-07-02] MEDS: LORazepam 2 MG/ML INJ IV PRN (11:44)
[2023-07-02] MEDS: MORPHINE SULFATE (100 MG/2 ML) 100 MG in SODIUM CHLORIDE 0.9% 100 ML IV SCH (11:45)
[2023-07-02] MEDS: SCOPOLAMINE 1 MG/72 HR PATCH TRANSDERM SCH (11:47)
[2023-07-02] MEDS ORDERED: LORazepam 1 MG TAB PO SCH (12:00)
--- NOTE | 2023-07-02 12:02 | P.HPIM ---
History of Present Illness H&P Date: 07/02/23 Chief Complaint: Altered mental status * 58-year-old gentleman with past medical history significant for impaired cognition, history of mixed disease presents to the emergency department sent in for worsening mentation, increased agitation. Patient does have agitated behavior however over the last 2 weeks patient has been having progressive decline in mentation. Patient was transferred from an outside hospital with suspicion for pneumonia and sepsis. Workup at outside hospital per chart review showed lactate of 5.3. Patient was resuscitated with fluid and started on broad-spectrum antibiotic. History was limited secondary to patient mentation. While in ER patient continues to remain febrile, hypotensive required fluid resuscitation. Blood work obtained in ER showed WBC count of 14.6 hemoglobin 13.7 platelet count of 308 lactate level obtained was 1.4, secondary to altered mentation patient was admitted NPO. Family wanted hospice consultation as well and CODE STATUS was made note: REVIEW OF SYSTEMS: Unable to obtain secondary to mentation PHYSICAL EXAMINATION: GENERAL: The patient is disoriented , oriented x 0, ill appearance, restrained HEENT: Pupils are round and equally reacting to light. CARDIOVASCULAR: Tachycardia noted PULMONARY: Creased breath sounds bilaterally ABDOMEN: Soft, nontender, nondistended, normoactive bowel sounds. No palpable organomegaly. MUSCULOSKELETAL: No joint swelling or deformity. EXTREMITIES: No cyanosis, clubbing, or pedal edema. NEUROLOGICAL: Unable to obtain secondary to mentation Past Medical History Past Medical History: GERD/Reflux Additional Past Medical History / Comment(s): hemorrhoids,anemia, "chronic kidney disease when taking certain medications", early onset alzheimers History of Any Multi-Drug Resistant Organisms: None Reported Past Surgical History: Hernia Repair, Orthopedic Surgery Additional Past Surgical History / Comment(s): ACL rt knee, rt foot surgery from injury, umbilical hernia, hemorroidectomy Past Anesthesia/Blood Transfusion Reactions: No Reported Reaction Additional Past Anesthesia/Blood Transfusion Reaction / Comment(s): Bilateral vasectomy Past Psychological History: Anxiety Past Alcohol Use History: Daily Past Drug Use History: None Reported - Past Family History Mother Family Medical History: No Reported History Father Family Medical History: Cancer Sister(s) Family Medical History: Cancer Brother(s) Family Medical History: Cancer Medications and Allergies Home Medications Medication Instructions Recorded Confirmed Type Ativan 2mg/Ml Injection 1 mg IM Q8H PRN 07/01/23 07/01/23 History Docusate [Colace] 100 mg PO DAILY@0800 07/01/23 07/01/23 History Escitalopram [Lexapro] 20 mg PO DAILY@0800 07/01/23 07/01/23 History Ibuprofen [Motrin Ib] 600 mg PO Q8H PRN 07/01/23 07/01/23 History Ibuprofen [Motrin Ib] 600 mg PO TID@0800,1300,199907/01/23 07/01/23 History LORazepam [Ativan] 1 mg PO BID@1200,209907/01/23 07/01/23 History LORazepam [Ativan] 1 mg PO Q4H PRN 07/01/23 07/01/23 History Lurasidone [Latuda] 20 mg PO HS@199907/01/23 07/01/23 History Magnesium Hydroxide [Milk of 2,400 mg PO Q2D PRN 07/01/23 07/01/23 History Magnesia] Na Phos,M-B/Na Phos,Di-Ba [Fleet 133 ml RECTAL Q96H PRN 07/01/23 07/01/23 History Adult] OLANZapine 5 mg PO DAILY@0800 07/01/23 07/01/23 History Sodium Chloride [Saline Mist] 1 spr EA NOSTRIL Q4H PRN 07/01/23 07/01/23 History bisacodyL [Dulcolax] 10 mg RECTAL Q72H PRN 07/01/23 07/01/23 History polyethylene glycoL 3350 [Miralax] 17 gm PO HS@199907/01/23 07/01/23 History traZODone HCL 100 mg PO HS@199907/01/23 07/01/23 History Allergies Allergy/AdvReac Type Severity Reaction Status Date / Time No Known Allergies Allergy Verified 07/01/23 19:35 Physical Exam Vitals: Vital Signs Temp Pulse Resp BP Pulse Ox 07/02/23 08:05 92 L 07/02/23 07:14 100.6 F H 07/02/23 03:25 90 19 150/88 93 L 07/01/23 19:54 99.1 F 89 20 139/88 94 L 07/01/23 17:17 102.6 F H 107 H 18 92/67 93 L Intake and Output 07/01/23 07/02/23 07/02/23 22:59 06:59 14:59 Other: Weight 74.843 kg Results CBC & Chem 7: 07/02/23 07:36 07/02/23 07:36 Labs: Abnormal Lab Results - Last 24 Hours (Table) 07/02/23 Range/Units 07:36 WBC 14.6 H (3.8-10.6) k/uL RBC 4.16 L (4.30-5.90) m/uL Assessment and Plan Assessment: Assessment and plan * Acute metabolic encephalopathy on top of chronic encephalopathy * Acute renal failure * Transaminitis * Acute hypernatremia * Sepsis secondary to pneumonia * Multifocal pneumonia * 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 * Acute agitation * In regards to acute change in mentation, likely multifactorial metabolic as well as progressive decline in mentation secondary to underlying PICK Disease * In regards to sepsis, blood cultures requested, continue fluid resuscitation, follow-up on urine Legionella and inflammatory markers continue Zosyn vancomycin * In regards to multifocal pneumonia follow-up on urine Legionella continue with oxygen supplementation as needed * In regards to acute agitation, use ZYPREXA as needed * In regards to acute renal failure, and hypernatremia continue patient on D5W * CODE STATUS is no code, hospice consultation placed Time with Patient: Greater than 30
--- NOTE | 2023-07-02 12:03 | P.EN ---
* Care plan discussed with and son at bedside, patient continues to remain ill with multiorgan involvement. * Patient at this point will be transition to comfort measures, antibiotic discontinued goals of care discussed. * Patient started on IV morphine drip, antibiotics and fluids discontinued * Patient given fentanyl patch as well will plan to remove restraints * Care plan discussed with nursing staff
[2023-07-02] MEDS ORDERED: PIPERACILLIN-TAZOBACTAM 3.375 GM in SODIUM CHLORIDE 0.9% 100 ML IVPB SCH (18:00)
[2023-07-02] MEDS ORDERED: traZODone HCL 100 MG TAB PO SCH (20:00)
[2023-07-02] MEDS ORDERED: LURASIDONE 20 MG TAB PO SCH (20:00)
[2023-07-03] MEDS ORDERED: OLANZapine 5 MG TAB PO SCH (08:00)
== END 2023-07-02 13:13 | disposition hospice, inpatient (51) | DRG 871 ==
LOC: EC 16:40 → 3SCARD 17:28
PROVIDERS: ADMIT Internal Medicine; ATTEND Internal Medicine
DX: A41.9 Sepsis, unspecified organism (principal); G93.41 Metabolic encephalopathy; J18.9 Pneumonia, unspecified organism; N17.9 Acute kidney failure, unspecified; E87.0 Hyperosmolality and hypernatremia; F02.C4 Dementia in other diseases classified elsewhere, severe, with anxiety; D63.1 Anemia in chronic kidney disease; I95.9 Hypotension, unspecified; G31.01 Pick's disease; G30.0 Alzheimer's disease with early onset; I12.9 Hypertensive chronic kidney disease with stage 1 through stage 4 chronic kidney disease, or unspecified chronic kidney disease; N18.9 Chronic kidney disease, unspecified; Z51.5 Encounter for palliative care; Z66 Do not resuscitate; K21.9 Gastro-esophageal reflux disease without esophagitis; K64.9 Unspecified hemorrhoids; R74.01 Elevation of levels of liver transaminase levels; Z79.899 Other long term (current) drug therapy
CPT/HCPCS: 71045; 80048; 80202; 83605; 85027; 86140; 87040; 87070; 87449; 94760; 96361; 96365; 96366; 96367; 96368; 96372; 96375; 99285

== ENCOUNTER 2023-07-02 12:41 | Inpatient (IN) | payer MEDICAID, MEDICARE ==
[2023-07-02] MEDS ORDERED: ONDANSETRON 4 MG/2 ML VIAL IVP PRN (13:10)
[2023-07-02] MEDS ORDERED: HALOPERIDOL LACTATE 5 MG/ML 1 ML VIAL IM PRN (13:10)
[2023-07-02] MEDS ORDERED: GLYCOPYRROLATE 0.2 MG/ML 2 ML VIAL IVP PRN (13:10)
[2023-07-02] MEDS ORDERED: ACETAMINOPHEN SUPPOSITORY 650 MG SUPP RECTAL PRN (13:10)
[2023-07-02] MEDS ORDERED: MORPHINE SULFATE 4 MG/ML SYRINGE IV PRN (13:10)
[2023-07-02] MEDS: LORazepam 2 MG/ML INJ IV PRN (13:43)
[2023-07-02 14:03] VITALS: BP 150/88; PULSE 78; TEMP 97.6
[2023-07-02] MEDS: MORPHINE SULFATE (100 MG/2 ML) 100 MG in SODIUM CHLORIDE 0.9% 100 ML IV SCH (14:44)
[2023-07-02 23:07] VITALS: RESP 15
--- NOTE | 2023-07-03 12:48 | P.HPIM ---
History of Present Illness H&P Date: 07/03/23 Chief Complaint: Hospice * 58-year-old patient with past medical history PICKS Disease, who was admitted on 07/02/2023, patient has impaired cognition history of pix disease presented with altered mental status. Patient was noted to have renal failure. Patient was transitioned to comfort measures and admitted under hospice, REVIEW OF SYSTEMS: Limited transition to hospice PHYSICAL EXAMINATION: Limited transition to hospice transition to hospice Past Medical History Past Medical History: Dementia, GERD/Reflux, Memory Impairment, Neurologic Disorder, Renal Disease Additional Past Medical History / Comment(s): hemorrhoids,anemia, "chronic kidney disease when taking certain medications", early onset alzheimers History of Any Multi-Drug Resistant Organisms: None Reported Past Surgical History: Hernia Repair, Orthopedic Surgery Additional Past Surgical History / Comment(s): ACL rt knee, rt foot surgery from injury, umbilical hernia, hemorroidectomy Past Anesthesia/Blood Transfusion Reactions: No Reported Reaction Additional Past Anesthesia/Blood Transfusion Reaction / Comment(s): Bilateral vasectomy Past Psychological History: Anxiety Additional Psychological History / Comment(s): early on set alzheimers Smoking Status: Former smoker Past Alcohol Use History: Daily Additional Past Alcohol Use History / Comment(s): started smoking at age 25, 1/2 ppd Past Drug Use History: None Reported - Past Family History Mother Family Medical History: No Reported History Father Family Medical History: Cancer Sister(s) Family Medical History: Cancer Brother(s) Family Medical History: Cancer Medications and Allergies Home Medications Medication Instructions Recorded Confirmed Type Ativan 2mg/Ml Injection 1 mg IM Q8H PRN 07/01/23 07/02/23 History Docusate [Colace] 100 mg PO DAILY@0800 07/01/23 07/02/23 History Escitalopram [Lexapro] 20 mg PO DAILY@0800 07/01/23 07/02/23 History Ibuprofen [Motrin Ib] 600 mg PO Q8H PRN 07/01/23 07/02/23 History Ibuprofen [Motrin Ib] 600 mg PO TID@0800,1300,2000 07/01/23 07/02/23 History LORazepam [Ativan] 1 mg PO BID@1200,2100 07/01/23 07/02/23 History LORazepam [Ativan] 1 mg PO Q4H PRN 07/01/23 07/02/23 History Lurasidone [Latuda] 20 mg PO HS@199907/01/23 07/02/23 History Magnesium Hydroxide [Milk of 2,400 mg PO Q2D PRN 07/01/23 07/02/23 History Magnesia] Na Phos,M-B/Na Phos,Di-Ba [Fleet 133 ml RECTAL Q96H PRN 07/01/23 07/02/23 History Adult] OLANZapine 5 mg PO DAILY@0800 07/01/23 07/02/23 History Sodium Chloride [Saline Mist] 1 spr EA NOSTRIL Q4H PRN 07/01/23 07/02/23 History bisacodyL [Dulcolax] 10 mg RECTAL Q72H PRN 07/01/23 07/02/23 History polyethylene glycoL 3350 [Miralax] 17 gm PO HS@199907/01/23 07/02/23 History traZODone HCL 100 mg PO HS@199907/01/23 07/02/23 History Allergies Allergy/AdvReac Type Severity Reaction Status Date / Time No Known Allergies Allergy Verified 07/01/23 19:35 Physical Exam Vitals: Vital Signs Temp Pulse Resp BP Pulse Ox 07/02/23 20:00 15 07/02/23 13:26 97.6 F 78 16 150/88 98 Intake and Output 07/02/23 07/03/23 07/03/23 22:59 06:59 14:59 Intake Total 30.839 79.849 Output Total 200 250 Balance -169.161 -250 79.849 Intake: Intake, IV Titration 30.839 79.849 Amount Morphine Sulfate (100 mg/ 30.839 79.849 2 ml) 100 mg In Sodium Chloride 0.9% 100 ml @ 2 MG/HR 2.04 mls/hr IV . 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
[2023-07-03] MEDS: ATROPINE OPHTH SOLN 1% 5ML BTL SUBLINGUAL PRN (20:41)
[2023-07-04] MEDS: DRY MOUTH SPRAY 44.3 SPRAY/44.3 ML SPRAY MUCOUS MEM PRN (00:54)
--- NOTE | 2023-07-04 08:49 | P.DS ---
Providers Date of admission: 07/02/23 13:14 Expected date of discharge: 07/04/23 Attending physician: Candelaria Gross MD Primary care physician: Luke [facility] Course: * 58-year-old patient with past medical history PICKS Disease, who was admitted on 07/02/2023, patient has impaired cognition history of PICKS disease presented with altered mental status. Patient was noted to have renal failure. Patient was transitioned to comfort measures and admitted under hospice, patient was kept comfortable with family at bedside. Ultimately patient secondary to underlying comorbidities. 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 * Acute renal failure * Acute hyponatremia * Sepsis secondary to pneumonia * Multifocal pneumonia Patient , family at bedside Patient Condition at Discharge: Undetermined Plan - Discharge Summary New Discharge Prescriptions: No Action Magnesium Hydroxide [Milk of Magnesia] 2,400 mg PO Q2D PRN PRN Reason: Constipation Ibuprofen [Motrin Ib] 600 mg PO Q8H PRN PRN Reason: Pain Na Phos,M-B/Na Phos,Di-Ba [Fleet Adult] 133 ml RECTAL Q96H PRN PRN Reason: Constipation bisacodyL [Dulcolax] 10 mg RECTAL Q72H PRN PRN Reason: Constipation LORazepam [Ativan] 1 mg PO Q4H PRN PRN Reason: Anxiety/Agitation Ativan 2mg/Ml Injection 1 mg IM Q8H PRN PRN Reason: Anxiety/Agitation LORazepam [Ativan] 1 mg PO BID@1200,2100 Escitalopram [Lexapro] 20 mg PO DAILY@0800 Docusate [Colace] 100 mg PO DAILY@0800 Ibuprofen [Motrin Ib] 600 mg PO TID@0800,1300,2000 traZODone HCL 100 mg PO HS@2000 OLANZapine 5 mg PO DAILY@0800 polyethylene glycoL 3350 [Miralax] 17 gm PO HS@2000 Lurasidone [Latuda] 20 mg PO HS@2000 Sodium Chloride [Saline Mist] 1 spr EA NOSTRIL Q4H PRN PRN Reason: Nasal Congestion Discharge Medication List Ativan 2mg/Ml Injection 1 mg IM Q8H PRN 07/01/23 [History] Docusate [Colace] 100 mg PO DAILY@0800 07/01/23 [History] Escitalopram [Lexapro] 20 mg PO DAILY@0800 07/01/23 [History] Ibuprofen [Motrin Ib] 600 mg PO Q8H PRN 07/01/23 [History] Ibuprofen [Motrin Ib] 600 mg PO TID@0800,1300,199907/01/23 [History] LORazepam [Ativan] 1 mg PO BID@1200,2100 07/01/23 [History] LORazepam [Ativan] 1 mg PO Q4H PRN 07/01/23 [History] Lurasidone [Latuda] 20 mg PO HS@199907/01/23 [History] Magnesium Hydroxide [Milk of Magnesia] 2,400 mg PO Q2D PRN 07/01/23 [History] Na Phos,M-B/Na Phos,Di-Ba [Fleet Adult] 133 ml RECTAL Q96H PRN 07/01/23 [History] OLANZapine 5 mg PO DAILY@0800 07/01/23 [History] Sodium Chloride [Saline Mist] 1 spr EA NOSTRIL Q4H PRN 07/01/23 [History] bisacodyL [Dulcolax] 10 mg RECTAL Q72H PRN 07/01/23 [History] polyethylene glycoL 3350 [Miralax] 17 gm PO HS@199907/01/23 [History] traZODone HCL 100 mg PO HS@199907/01/23 [History] Follow up Appointment(s)/Referral(s): Luke Sotomayor MD [Primary Care Provider] - 1 Week Discharge Disposition: - Preliminary Cause of Preliminary Cause of : Pneumonia
[2023-07-05] MEDS ORDERED: SCOPOLAMINE 1 MG/72 HR PATCH TRANSDERM SCH (11:00)
== END 2023-07-04 04:54 | disposition expired | DRG 951 ==
LOC: EC 12:41 → 5NMEDONC 13:14
PROVIDERS: ADMIT Internal Medicine; ATTEND Internal Medicine
DX: Z51.5 Encounter for palliative care (principal); A41.9 Sepsis, unspecified organism; G93.41 Metabolic encephalopathy; J18.9 Pneumonia, unspecified organism; E87.1 Hypo-osmolality and hyponatremia; F02.84 Dementia in other diseases classified elsewhere, unspecified severity, with anxiety; Z66 Do not resuscitate; D63.1 Anemia in chronic kidney disease; G31.01 Pick's disease; G30.0 Alzheimer's disease with early onset; Z79.899 Other long term (current) drug therapy; N18.9 Chronic kidney disease, unspecified; Z87.891 Personal history of nicotine dependence; Z28.310 Unvaccinated for COVID-19; Z79.1 Long term (current) use of non-steroidal anti-inflammatories (NSAID)